=== PATIENT | female | born 1960 | race Caucasian/White ===

== ENCOUNTER 2022-10-24 20:35 | Emergency (ER) | payer BC, SELFPAY ==
--- NOTE | 2022-10-24 20:49 | ED.GENADULT ---
HPI - General Adult General Chief complaint: Recheck/Abnormal Lab/Rx Stated complaint: abnormal labs Time Seen by Provider: 10/25/22 00:56 Related Data Allergies Allergy/AdvReac Type Severity Reaction Status Date / Time No Known Allergies Allergy Verified 10/24/22 20:50 [facility] Social History Social History Advance Directives: No Advance Directives Information Provided: No Physical Exam ED Vital Signs: Vital Signs - 24 hr 10/24/22 20:51 Temperature 97 F Pulse Rate 70 Respiratory Rate 18 Blood Pressure 154/93 H Pulse Oximetry 98 Oxygen Delivery Method Room Air BMI result Body Mass Index 24.6 Course Course Course Narrative: This is a rapid medical exam: Additional HPI, ROS, PE not included below will be deferred to primary provider. Patient is a 62-year-old female referred to the ED by new PCP. She had routine labs drawn at 7am today for annual physical and she received a call this evening notifying her that her potassium was elevated to 6.3 and to come to the ED. Denies any chest pain, shortness of breath, or palpitations. Plan: labs, EKG Reevaluation(s) Reevaluation #1: i went to see patient she was not in room - reviewed workup and it was negative she is not on potassium sparing diuretic. aware of her K which is 4.6. I did not see the patient she is elopement Medical Decision Making Lab Data 10/24/22 21:00 10/24/22 21:00 Labs: Lab Results 10/24/22 10/24/22 Range/Units 21:00 21:00 WBC 4.5 L (4.8-10.8) X10*3/uL RBC 4.81 (4.20-5.50) X10*6/uL Hgb 14.8 (12.0-16.0) g/dl Hct 43.0 (37.0-47.0) % MCV 89.4 (80.0-98.0) fL MCH 30.8 (27.0-33.0) pg MCHC 34.4 (31.0-35.0) g/dl RDW 12.6 (11.0-16.0) % Plt Count 292 (160-400) X10*3/uL MPV 9.5 (9.4-12.3) fL Immature Gran % (Auto) 0.2 (0.0-0.4) % Neut % (Auto) 48.4 (45-73) % Lymph % (Auto) 37.2 (20-40) % Churchill % (Auto) 10.7 (2-11) % Eos % (Auto) 2.2 (0-4) % Baso % (Auto) 1.3 (0-2) % Lymph # (Auto) 1.7 (1.2-4.9) X10*3/uL Churchill # (Auto) 0.5 (0.1-1.2) X10*3/uL Eos # (Auto) 0.1 (0.0-0.4) X10*3/uL Baso # (Auto) 0.1 (0.0-0.2) X10*3/uL Abs Immat Gran (auto) 0.01 (0.00-0.03) X10*3/uL Absolute Neuts (auto) 2.2 (2.0-8.3) x10*3/uL Absolute Nucleated RBC 0.000 (0.0-0.012) X10*3/uL Nucleated RBC % (auto) 0.0 (0.0-0.2) /100WBC Sodium 140 (135-145) mmol/L Potassium 4.6 (3.3-5.1) mmol/L Chloride 105 (96-108) mmol/L Carbon Dioxide 27 (22-29) mmol/L Anion Gap 13 (12-20) BUN 10 (9-16) mg/dL Creatinine 0.82 (0.5-1.4) mg/dL Estim Creat Clear Calc 59.4 Estimated GFR > 60 Random Glucose 104 (60-115) mg/dL Calcium 9.7 (8.4-10.2) mg/dL Total Bilirubin 0.4 (0.0-1.0) mg/dL AST 23 (5-31) U/L ALT 16 (0-31) U/L Alkaline Phosphatase 74 (39-117) U/L Total Protein 7.4 (6.5-8.0) g/dL Albumin 4.1 (3.5-5.0) g/dL Discharge Plan Discharge Clinical Impression: Normal exam, Abnormal laboratory test result Patient Disposition: Elopement Interventions: ED Discharge Assessment Last Done: 10/25/22 01:03 Discharge Date/Time: 10/25/22 01:30
[2022-10-24 20:51] VITALS: BP 154/93; PULSE 70; RESP 18; TEMP 36.1; O2SAT 98; BMI 24.6
--- NOTE | 2022-10-24 20:52 | ECG_ITS ---
Test Reason : ABNORMAL LABS Blood Pressure : / mmHG Vent. Rate : 067 BPM Atrial Rate : 067 BPM P-R Int : 158 ms QRS Dur : 082 ms QT Int : 380 ms P-R-T Axes : 050 -36 025 degrees QTc Int : 401 ms Normal sinus rhythm Left axis deviation Low voltage QRS Cannot rule out Anterior infarct , age undetermined Abnormal ECG No previous ECGs available Referred By: Janeth Kessler Electronically Signed By:CUATE NAJERA
[2022-10-24 21:04] LABS: MANUAL DIFF FLAG NO
[2022-10-24 21:06] LABS: Basophils Absolute Auto 0.1 X10*3/uL (0.0-0.2); Basophils Percent Auto 1.3 % (0-2); Eosinophils Absolute Auto 0.1 X10*3/uL (0.0-0.4); Eosinophils Percent Auto 2.2 % (0-4); Hemoglobin 14.8 g/dl (12.0-16.0); Imm Gran Abs Auto 0.01 X10*3/uL (0.00-0.03); Imm Gran Pct Auto 0.2 % (0.0-0.4); Lymphocytes Absolute Auto 1.7 X10*3/uL (1.2-4.9); Lymphocytes Percent Auto 37.2 % (20-40); Mean Corpuscular HGB Conc 34.4 g/dl (31.0-35.0); Mean Corpuscular Hemoglobin 30.8 pg (27.0-33.0); Mean Corpuscular Volume 89.4 fL (80.0-98.0); Mean Platelet Volume 9.5 fL (9.4-12.3); Monocytes Absolute Auto 0.5 X10*3/uL (0.1-1.2); Monocytes Percent Auto 10.7 % (2-11); Neutrophils Absolute Auto 2.2 x10*3/uL (2.0-8.3); Neutrophils Percent Auto 48.4 % (45-73); Platelet Count 292 X10*3/uL (160-400); Red Blood Count 4.81 X10*6/uL (4.20-5.50); Red Cell Distribution Width 12.6 % (11.0-16.0); White Blood Count 4.5 X10*3/uL (4.8-10.8)
--- NOTE | 2022-10-24 21:18 | MHC.EDTECH ---
pt ekg taken and was read by provider ,blood drawn and sent to lab .
[2022-10-24 21:20] LABS: Alanine Aminotransferase 16 U/L (0-31); Albumin Level 4.1 g/dL (3.5-5.0); Alkaline Phosphatase 74 U/L (39-117); Anion Gap 13 (12-20); Aspartate Amino Transferase 23 U/L (5-31); Bilirubin Total 0.4 mg/dL (0.0-1.0); Blood Urea Nitrogen 10 mg/dL (9-16); Calcium 9.7 mg/dL (8.4-10.2); Carbon Dioxide 27 mmol/L (22-29); Chloride 105 mmol/L (96-108); Creatinine Clr Calc Pharmacy 59.4; Estimated Glomerular Filt Rate > 60; Glucose Random 104 mg/dL (60-115); Potassium 4.6 mmol/L (3.3-5.1); Sodium 140 mmol/L (135-145); Total Protein 7.4 g/dL (6.5-8.0)
== END 2022-10-25 01:30 | disposition left against medical advice (07) ==
LOC: HO.ED 10-25 01:12
PROVIDERS: Registered Nurse Emergency; Emergency Provider Emergency Medicine; PCP Family Medicine
DX: Z03.89 Encounter for observation for other suspected diseases and conditions ruled out (principal); R79.89 Other specified abnormal findings of blood chemistry
CPT/HCPCS: 36415; 80053; 85025; 93005; 99283

== ENCOUNTER 2025-01-04 07:59 | Inpatient (IN) | payer OTHER, SELFPAY ==
[2025-01-04] VITALS (12 sets, daily range): BP systolic 112–212; BP diastolic 73–125; PULSE 67–93; RESP 14–19; TEMP 36.3–36.9; O2SAT 93–100; BMI 26.1; BMI 27.0
--- NOTE | ~2025-01-04 | MR_ITS ---
CLINICAL HISTORY: TIA MR Brain without gadolinium Comparison: None provided Findings: No restricted diffusion. Faint tiny focus of T2 shine through in the right internal capsule. No intra-axial mass or hemorrhage. Scattered T2/FLAIR hyperintensities in the deep white matter, nonspecific, however may represent sequela of chronic microvascular ischemic disease. No midline shift. No hydrocephalus. Vascular flow voids are intact. Orbital contents are unremarkable. Minimal fluid in the bilateral mastoid air cells. No focal bone lesion. IMPRESSION: No acute intracranial abnormality. This document has been electronically signed by: Sridevi Gutierres MD on 01/04/2025 18:33:14
--- NOTE | ~2025-01-04 | CT_ITS ---
EXAMINATION: CT HEAD WITHOUT CONTRAST (STROKE PROTOCOL) CLINICAL INFORMATION: Stroke protocol. Left-sided weakness COMPARISON: None available. TECHNIQUE: Contiguous axial imaging was performed from the skull base to vertex without intravenous administration of contrast. This CT examination was performed using dose optimization techniques as appropriate, variously including the following: *Automated exposure control *Adjustment of mA and/or kV according to patient size (this includes techniques or standardized protocols for targeted exams where dose is matched to indication/reason for exam; i.e. extremities or head) *Use of iterative reconstruction technique DLP: 633 mGy-cm FINDINGS: No acute intracranial hemorrhage, mass effect, midline shift, hydrocephalus or herniation. Anderson-white matter differentiation is normal. No increased density in the MCA. Posterior cranial fossa contents demonstrated no acute hemorrhage or mass effect. Craniocervical junction is intact with normal position of the cerebellar tonsils. Sellar/suprasellar region demonstrated no gross masses. Probable old traumatic deformities in the nasal bones. No air-fluid levels in the paranasal sinuses. Tympanic cavities and mastoid cells are aerated. CT/CT angio head neck STROKE IMPRESSION: No acute intracranial hemorrhage or acute brain abnormality by CT. EXAMINATION: CTA NECK WITH CONTRAST (STROKE) CTA BRAIN WITH CONTRAST (STROKE) CLINICAL INFORMATION: Left-sided weakness. Concerning for acute stroke. COMPARISON: None available. TECHNIQUE: CTA of the head and neck was performed in the axial plane from the mediastinum to the skull vertex using 70 mL Omnipaque 350 intravenous contrast. Additional reformatted multiplanar images including maximum intensity projection MIP images are generated on the CT workstation. This CT examination was performed using dose optimization techniques as appropriate, variously including the following: *Automated exposure control *Adjustment of mA and/or kV according to patient size (this includes techniques or standardized protocols for targeted exams where dose is matched to indication/reason for exam; i.e. extremities or head) *Use of iterative reconstruction technique DLP: 666 mGy-cm FINDINGS: The degree of stenosis determined by criteria similar to NASCET. Chest CTA: No aneurysm or dissection in the included aortic arch. The main right branches are patent. Neck CTA: Right CCA: Normal patency. No focal stenosis. No intimal flap. Right ICA: Mixed plaques. Normal patency. No focal stenosis. No intimal flap. Left CCA: Normal patency. No focal stenosis. No intimal flap. Left ICA: Mixed plaque. Normal patency. No focal stenosis. No intimal flap. Tortuosity. V1/V2 segments: Normal patency. No focal stenosis. No intimal flap. Left vertebral artery slightly dominant. Both orientating from the subclavian arteries. Brain CTA: Anterior cerebral circulation: ICAs: Normal patency. No focal stenosis. No abrupt cut off. No gross calcified plaque. No vascular irregularity at the ICA terminus. MCA's: Normal patency. No focal stenosis. No abrupt cut off. Bifurcation/trifurcation demonstrated no gross irregularity. ACAs: Normal patency. No focal stenosis. No abrupt cut off. Ophthalmic arteries are patent without gross irregularity. Anterior communicating artery is not identified. Right posterior communicating artery is patent. Posterior cerebral circulation: V3/V4 segments: Normal patency. No intimal flap. Basilar artery is patent without focal stenosis or intimal flap. Left PICA is normal. Right PICA has a common trunk with the right anterior inferior cerebellar artery. Left anterior inferior cerebellar artery is patent. Superior cerebellar arteries are patent. pick up man: Normal patency. No focal stenosis. No abrupt cut off. Ancillary findings: No main cerebral venous sinus thrombosis. Multilevel cervical spondylosis resulting in kyphotic deformity apex at C3-4. Nonspecific, bilateral prominent cervical lymph nodes. Thyroid gland is not enlarged. Pulmonary mosaic pattern. Status post anterior cervical fusion and intervertebral body disc spacer placement C4 C6. IMPRESSION: No main cerebral artery occlusion or embolus. Calcified plaques in both ICA without high degree stenosis. No dissection. This critical result was discussed with the emergency physician Dr. Reno Tristan at 8:20 AM hours on January 04, 2025. It was ascertained that the content and urgency of the report was understood at the time of direct communication. Electronically signed by: Gatito Amaya MD 01/04/2025 08:37 AM [facility] [place]
--- NOTE | ~2025-01-04 | CT_ITS ---
EXAMINATION: CT HEAD WITHOUT CONTRAST (STROKE PROTOCOL) CLINICAL INFORMATION: Stroke protocol. Left-sided weakness COMPARISON: None available. TECHNIQUE: Contiguous axial imaging was performed from the skull base to vertex without intravenous administration of contrast. This CT examination was performed using dose optimization techniques as appropriate, variously including the following: *Automated exposure control *Adjustment of mA and/or kV according to patient size (this includes techniques or standardized protocols for targeted exams where dose is matched to indication/reason for exam; i.e. extremities or head) *Use of iterative reconstruction technique DLP: 633 mGy-cm FINDINGS: No acute intracranial hemorrhage, mass effect, midline shift, hydrocephalus or herniation. Anderson-white matter differentiation is normal. No increased density in the MCA. Posterior cranial fossa contents demonstrated no acute hemorrhage or mass effect. Craniocervical junction is intact with normal position of the cerebellar tonsils. Sellar/suprasellar region demonstrated no gross masses. Probable old traumatic deformities in the nasal bones. No air-fluid levels in the paranasal sinuses. Tympanic cavities and mastoid cells are aerated. CT/CT head for STROKE IMPRESSION: No acute intracranial hemorrhage or acute brain abnormality by CT. EXAMINATION: CTA NECK WITH CONTRAST (STROKE) CTA BRAIN WITH CONTRAST (STROKE) CLINICAL INFORMATION: Left-sided weakness. Concerning for acute stroke. COMPARISON: None available. TECHNIQUE: CTA of the head and neck was performed in the axial plane from the mediastinum to the skull vertex using 70 mL Omnipaque 350 intravenous contrast. Additional reformatted multiplanar images including maximum intensity projection MIP images are generated on the CT workstation. This CT examination was performed using dose optimization techniques as appropriate, variously including the following: *Automated exposure control *Adjustment of mA and/or kV according to patient size (this includes techniques or standardized protocols for targeted exams where dose is matched to indication/reason for exam; i.e. extremities or head) *Use of iterative reconstruction technique DLP: 666 mGy-cm FINDINGS: The degree of stenosis determined by criteria similar to NASCET. Chest CTA: No aneurysm or dissection in the included aortic arch. The main right branches are patent. Neck CTA: Right CCA: Normal patency. No focal stenosis. No intimal flap. Right ICA: Mixed plaques. Normal patency. No focal stenosis. No intimal flap. Left CCA: Normal patency. No focal stenosis. No intimal flap. Left ICA: Mixed plaque. Normal patency. No focal stenosis. No intimal flap. Tortuosity. V1/V2 segments: Normal patency. No focal stenosis. No intimal flap. Left vertebral artery slightly dominant. Both orientating from the subclavian arteries. Brain CTA: Anterior cerebral circulation: ICAs: Normal patency. No focal stenosis. No abrupt cut off. No gross calcified plaque. No vascular irregularity at the ICA terminus. MCA's: Normal patency. No focal stenosis. No abrupt cut off. Bifurcation/trifurcation demonstrated no gross irregularity. ACAs: Normal patency. No focal stenosis. No abrupt cut off. Ophthalmic arteries are patent without gross irregularity. Anterior communicating artery is not identified. Right posterior communicating artery is patent. Posterior cerebral circulation: V3/V4 segments: Normal patency. No intimal flap. Basilar artery is patent without focal stenosis or intimal flap. Left PICA is normal. Right PICA has a common trunk with the right anterior inferior cerebellar artery. Left anterior inferior cerebellar artery is patent. Superior cerebellar arteries are patent. supervisor photostat: Normal patency. No focal stenosis. No abrupt cut off. Ancillary findings: No main cerebral venous sinus thrombosis. Multilevel cervical spondylosis resulting in kyphotic deformity apex at C3-4. Nonspecific, bilateral prominent cervical lymph nodes. Thyroid gland is not enlarged. Pulmonary mosaic pattern. Status post anterior cervical fusion and intervertebral body disc spacer placement C4 C6. IMPRESSION: No main cerebral artery occlusion or embolus. Calcified plaques in both ICA without high degree stenosis. No dissection. This critical result was discussed with the emergency physician Dr. Reno Tristan at 8:20 AM hours on January 04, 2025. It was ascertained that the content and urgency of the report was understood at the time of direct communication. Electronically signed by: Gatito Amaya MD 01/04/2025 08:37 AM [facility] [place]
--- NOTE | 2025-01-04 08:09 | ECG_ITS ---
Test Reason : stroke alert Blood Pressure : */* mmHG Vent. Rate : 81 BPM Atrial Rate : 81 BPM P-R Int : 162 ms QRS Dur : 88 ms QT Int : 388 ms P-R-T Axes : 44 -40 20 degrees QTcB Int : 450 ms Normal sinus rhythm Possible Left atrial enlargement Left axis deviation Nonspecific ST and T wave abnormality Abnormal ECG When compared with ECG of 24-Oct-2022 21:06, No significant change was found Referred By: Reno Tristan Electronically Signed By: Marlo Vasquez
[2025-01-04 08:12] LABS: Glucose, Whole Blood 85 mg/dL (60-115)
[2025-01-04 08:13] LABS: MANUAL DIFF FLAG NO
--- NOTE | 2025-01-04 08:13 | ED_ITS ---
HPI - Neuro Symptoms/Deficit General Chief Complaint: Stroke Stated Complaint: ? stroke Time Seen by Provider: 01/04/25 08:07 Source: patient Mode of arrival: wheelchair Limitations: no limitations History of Present Illness ED Provider: HPI Narrative: 64-year-old female, reports being healthy however also does not see physicians on regular basis, went to bed at 22:00 was doing well, woke up at around 07:30 in the morning kneel down to pray and states was able to get up and then she went to get coffee and realize that her left leg is weak and left arm is weak and her left facial weakness as well, there were no visual changes, and it sounds like had some difficulty with phonation. Symptoms lasted approximately 30 minutes by the time she presented to the emergency department and I evaluated her she was completly at her baseline. Related Data Allergies Allergy/AdvReac Type Severity Reaction Status Date / Time No Known Allergies Allergy Verified 01/04/25 08:10 Review of Systems 2 Constitutional: Constitutional: Reports as per [facility] Social History Social History Smoked in Last 30 Days: No Use of substances other than those prescribed or required for medical reasons: No Patient : No Physical Exam 2 Exam: Exam: General: ?Appears of stated age ? ?PERRLA, ? Neck: Supple, no LAD ? ?CV: RRR, no obvious murmurs appreciated ? ?Resp: ?No wheezing rales rhonchi no stridor moving air well ? Abd: ?Bowel sounds are present, no tenderness no rebound no rigidity ? ?MSK: FROM, strength 5/5 all extremities ? Skin: Warm, dry, intact, ? ?Neuro: ?Alert and oriented x3, moving upper and lower extremities symmetrically, no obvious facial asymmetry noted, cranial nerves 2-12 intact, no dysmetria upper or lower extremities, no visual field changes, Vital Signs: Vital Signs: Last Vital Signs Temp 97.9 F 01/04/25 08:44 Pulse 84 01/04/25 09:13 Resp 15 01/04/25 09:13 BP 151/97 H 01/04/25 09:13 Pulse Ox 97 01/04/25 09:13 O2 Del Method Room Air 01/04/25 09:13 BMI result Body Mass Index 26.1 Medications Administered Discontinued Medications Generic Name Dose Route Start Last Admin Trade Name Freq PRN Reason Stop Dose Admin Iohexol 100 ml 01/04/25 08:31 01/04/25 08:31 Iohexol 350 Mg/Ml 100 Ml Infus..Btl IV 01/04/25 08:32 70 ml ONCE ONE Administration Medical Decision Making Medical Decision Making [facility] Narrative: 8:19 AM 01/04/2025 (Dr. 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 She would be a candidate for thrombectomy and so CT and CT angio we will be obtained, unless there are any findings do not anticipate discussing with Neurology as she is not a TNK candidate, also on initial presentation patient's blood pressure was quite elevated at the same time this maybe due to a very stressful event of come into the ER etc. I will address blood pressure as needed See my differential diagnosis as below Differential Diagnosis Differential Diagnoses: The differential diagnosis associated with the presentation includes (Ischemic stroke, hemorrhagic stroke, hypotensive emergency, TIA) Admission/Observation Consideration of admission/observation: Escalation of care including admission/observation considered Consult Healthcare Provider Management of the patient was discussed with: Hospitalist Lab Data [facility] Lab Attestation statement: I reviewed the patient's lab results. 01/04/25 08:03 01/04/25 08:08 Labs: Lab Results 01/04/25 01/04/25 Range/Units 08:03 08:08 WBC 3.9 L (4.8-10.8) X10*3/uL RBC 5.44 (4.20-5.50) X10*6/uL Hgb 16.0 (12.0-16.0) g/dl Hct 47.9 H (37.0-47.0) % MCV 88.1 (80.0-98.0) fL MCH 29.4 (27.0-33.0) pg MCHC 33.4 (31.0-35.0) g/dl RDW 12.9 (11.0-16.0) % Plt Count 247 (160-400) X10*3/uL MPV 9.2 L (9.4-12.3) fL Immature Gran % (Auto) 0.3 (0.0-0.4) % Neut % (Auto) 43.5 L (45-73) % Lymph % (Auto) 41.1 H (20-40) % [place] % (Auto) 11.5 H (2-11) % Eos % (Auto) 3.1 (0-4) % Baso % (Auto) 0.5 (0-2) % Lymph # (Auto) 1.6 (1.2-4.9) X10*3/uL [place] # (Auto) 0.5 (0.1-1.2) X10*3/uL Eos # (Auto) 0.1 (0.0-0.4) X10*3/uL Baso # (Auto) 0.0 (0.0-0.2) X10*3/uL Abs Immat Gran (auto) 0.01 (0.00-0.03) X10*3/uL Absolute Neuts (auto) 1.7 L (2.0-8.3) x10*3/uL Absolute Nucleated RBC 0.000 (0.0-0.012) X10*3/uL Nucleated RBC % (auto) 0.0 (0.0-0.2) /100WBC Hold Purple Top SEE NOTE PT 10.9 L (11.2-13.5) SEC Whole Blood PT 11.9 (11.1-13.5) sec INR 0.9 (0.9-1.1) Whole Blood INR 1.0 (0.9-1.1) APTT 32.9 (26.7-34.1) SEC POC Glucose 85 (60-115) mg/dL Troponin I High Sens < 2.7 (<3.5-17.0) ng/L Independent Interpretation I performed an independent interpretation of an: EKG (81 beats per minute otherwise normal ECG without dysrhythmia, AV adriana blocks or ST-T changes to suspect underlying ACS, my independent interpretation) Radiology Impression Discussion of test interpretation with radiology: I have reviewed the radiologist's reading. (No main cerebral artery occlusion or embolus. Calcified plaques in both ICA without high degree stenosis. No dissection.) NIH Stroke Scale Internal: Initial- Upon Arrival Level of Consciousness: Alert Level of Consciousness Questions: Answers both questions correctly Level of Consciousness Commands: Performs both tasks correctly Best Gaze: Normal Visual: No visual loss Facial Palsy: Normal Motor Arm (Right): No drift Motor Arm (Left): No drift Motor Leg (Right): No drift Motor Leg (Left): No drift Limb Ataxia: Absent Sensory: Normal Best Language: No aphasia Dysarthia: Normal Extinction and Inattention: No abnormality Score: 0 Critical Care Time Critical Care Time Total Critical Care Time: 35 Attestation: Time is exclusive of separately billable procedures. Time includes: direct patient care, patient reassessment, coordination of patient care, interpretation of data (laboratory data, pulse oximetry, arterial blood gases and chest xrays), review of patient's medical records, medical consultation and documentation of patient care. Procedures excluded from critical care time: central intravenous line placement and electrocardiography. Discharge Plan Discharge Clinical Impression: Brain TIA Referrals: Ida Franklin PA-C [Primary Care Provider, Internal Medicine] Print Language: Turkish
[2025-01-04 08:15] LABS: Hematocrit 47.9 % (37.0-47.0); Hemoglobin 16.0 g/dl (12.0-16.0); Imm Gran Abs Auto 0.01 X10*3/uL (0.00-0.03); Imm Gran Pct Auto 0.3 % (0.0-0.4); Lymphocytes Absolute Auto 1.6 X10*3/uL (1.2-4.9); Mean Corpuscular HGB Conc 33.4 g/dl (31.0-35.0); Mean Corpuscular Hemoglobin 29.4 pg (27.0-33.0); Mean Corpuscular Volume 88.1 fL (80.0-98.0); NRBC Abs Auto 0.000 X10*3/uL (0.0-0.012); NRBC Pct Auto 0.0 /100WBC (0.0-0.2); Platelet Count 247 X10*3/uL (160-400); Red Blood Count 5.44 X10*6/uL (4.20-5.50); White Blood Count 3.9 X10*3/uL (4.8-10.8)
[2025-01-04 08:22] LABS: Prothrombin Time Whole Bld POC 11.9 sec (11.1-13.5); ~PT, ~INR - Anti Coag Clinic 1.0 (0.9-1.1)
--- NOTE | 2025-01-04 08:26 | PC.NURSE ---
Pt presented in through ED triage, stroke alert. Woke up this morning around 0730A, felt left sided weakness and unwell when she went to pray. Went to bed around 1030PM, felt well at that time. Had word finding issues this morning and dry mouth. This episode lasted around 40 mins and resolved. BP noted to be hypertensive. Pt alert and oriented at this time, breathing even and unlabored, skin warm and dry. No slurred speech, facial droop or confusion at this time. Reports she has not seen a doctor in a long time, no home meds, no blood thinners. Orders followed
[2025-01-04 08:27] LABS: INTERNATIONAL NORM RATIO 0.9 (0.9-1.1); Prothrombin Time 10.9 SEC (11.2-13.5)
[2025-01-04 08:30] LABS: Partial Thromboplastin Time 32.9 SEC (26.7-34.1)
[2025-01-04] MEDS: iohexoL 350 MG/ML 100 ML INFUS..BTL IV (08:31)
--- NOTE | 2025-01-04 08:31 | PC.NURSE ---
Pt also reporting feeling fatigue and unwell X2 days. No fevers, no cough, no pain.
[2025-01-04 08:33] LABS: Stroke Lab Use COMPLETE
[2025-01-04 09:18] LABS: Anion Gap 15 (12-20); Blood Urea Nitrogen 17 mg/dL (9-16); Calcium 9.2 mg/dL (8.4-10.2); Carbon Dioxide 23 mmol/L (22-29); Chloride 108 mmol/L (96-108); Cholesterol 286 mg/dL (<200); Creatinine Clr Calc Pharmacy 61.5; Estimated Glomerular Filt Rate > 60; HDL Cholesterol 84 mg/dL (>40); Potassium 4.2 mmol/L (3.3-5.1); Sodium 142 mmol/L (135-145); Triglycerides 106 mg/dL (<150); Troponin-I High Sensitivity < 2.7 ng/L (<3.5-17.0)
--- NOTE | 2025-01-04 10:23 | MHC.EDTECH ---
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
--- NOTE | 2025-01-04 10:31 | PM.IMHP ---
History of Present Illness Date of Service: 01/04/25 Attending physician on admission: Azar Meade Chief Complaint: Left sided weakness 64-year-old female who presented to the hospital for left-sided weakness and dysarthria that began approximately at 730 in the morning, with last known normal at approximately 22:00 on 01/03. Patient states that she was praying and was unable to get up, went to her room, afternoon improvement presented to the ED. In the ED NIH stroke scale 0, BP on admission 212/104 mmHg, on labs WBC 3.9, cholesterol 286, LDL 181, triglycerides 106 CT and CTA angio of head and neck with no signs of hemorrhage or ischemia, with calcified plaques in both ICA without high-degree stenosis, no dissection. Patient refers she has occasional episodes of palpitations, was diagnosed with a heart murmur when younger. Patient states that she does not take any medications at home as she is fairly healthy, diet consists mostly of meats and unprocessed foods. Denies any episodes similar to this 1. Per family members at bedside, father with history of stroke and [place]. Review of Systems Review of Systems: 14 point review of systems obtained, negative except as stated above PMFSH Social History Smoked in Last 30 Days: No Use of substances other than those prescribed or required for medical reasons: No Advance Directives: No Advance Directives Information Provided: Yes Patient : No Meds Allergies Allergy/AdvReac Type Severity Reaction Status Date / Time No Known Allergies Allergy Verified 01/04/25 08:10 Active Medications: Current Medications Acetaminophen (Acetaminophen 325 Mg Tablet) 650 mg PO Q6H PRN PRN Reason: Pain, Mild 1-3,fever,headache Aspirin (Aspirin Enteric Coated 81 Mg Tablet.Dr) 81 mg PO DAILY [facility] Atorvastatin Calcium (Atorvastatin Calcium 80 Mg Tablet) 80 mg PO DAILY [facility] Last Admin: 01/04/25 10:13 Dose: 80 mg Calcium Carbonate (Calcium Carbonate 750 Mg Tab.Chew) 750 mg PO Q4H PRN PRN Reason: Heartburn Clopidogrel Bisulfate (Clopidogrel Bisulfate 75 Mg Tablet) 75 mg PO DAILY [facility] Labetalol HCl (Labetalol Hcl 100 Mg/20 Ml Vial) 20 mg IVPUSH Q10M PRN PRN Reason: SBP > 160 Lisinopril (Lisinopril 10 Mg Tablet) 10 mg PO DAILY [facility]; Protocol Last Admin: 01/04/25 10:17 Dose: 10 mg Magnesium Hydroxide (Milk Of Magnesia 30 Ml Oral.Susp) 30 ml PO DAILY PRN PRN Reason: Constipation Melatonin (Melatonin 3 Mg Tablet) 6 mg PO BEDTIME PRN PRN Reason: Insomnia Sodium Chloride (0.9 % Sodium Chloride Flush 3 Ml Syringe) 3 ml IVFLUSH QSHIFT NATALIE Physical Exam Vital Signs and Narrative: Vital Signs: Last Vital Signs Temp 97.9 F 01/04/25 08:44 Pulse 77 01/04/25 10:12 Resp 18 01/04/25 10:12 BP 193/125 H 01/04/25 10:17 Pulse Ox 98 01/04/25 10:12 O2 Del Method Room Air 01/04/25 10:12 BMI result Body Mass Index 26.1 General: AxOx3, No acute distress Head: AT/NC ENT: Moist mucous membranes Neck: supple CVS; RRR, S1 S2 normal Lungs: Clear bilateral breath sounds, no wheezes or crackles Abd: Soft non tender, non distended Ext: No edema and no calf tenderness MSK: moving all 4 limbs Skin: No cyanosis or edema Psych: Cooperative with exam Neurology: no focal deficit Results Labs 01/04/25 08:03 01/04/25 08:08 Labs: Laboratory Results - last 24 hr 01/04/25 01/04/25 08:03 08:08 MCV 88.1 MCH 29.4 MCHC 33.4 RDW 12.9 Plt Count 247 MPV 9.2 L Immature Gran % (Auto) 0.3 Neut % (Auto) 43.5 L Lymph % (Auto) 41.1 H Lee % (Auto) 11.5 H Eos % (Auto) 3.1 Baso % (Auto) 0.5 Lymph # (Auto) 1.6 Lee # (Auto) 0.5 Eos # (Auto) 0.1 Baso # (Auto) 0.0 Abs Immat Gran (auto) 0.01 Absolute Neuts (auto) 1.7 L Absolute Nucleated RBC 0.000 Nucleated RBC % (auto) 0.0 Hold Purple Top SEE NOTE PT 10.9 L Whole Blood PT 11.9 INR 0.9 Whole Blood INR 1.0 APTT 32.9 Anion Gap 15 Estim Creat Clear Calc 61.5 Estimated GFR > 60 POC Glucose 85 Random Glucose 96 Calcium 9.2 Troponin I High Sens < 2.7 Triglycerides 106 Cholesterol 286 H LDL Cholesterol, Calc 181 H HDL Cholesterol 84 Imaging Radiologist's Impressions: Impressions Head/Neck CTA 01/04/25 08:01 IMPRESSION: No acute intracranial hemorrhage or acute brain abnormality by CT. EXAMINATION: CTA NECK WITH CONTRAST (STROKE) CTA BRAIN WITH CONTRAST (STROKE) CLINICAL INFORMATION: Left-sided weakness. Concerning for acute stroke. COMPARISON: None available. TECHNIQUE: CTA of the head and neck was performed in the axial plane from the mediastinum to the skull vertex using 70 mL Omnipaque 350 intravenous contrast. Additional reformatted multiplanar images including maximum intensity projection MIP images are generated on the CT workstation. This CT examination was performed using dose optimization techniques as appropriate, variously including the following: *Automated exposure control *Adjustment of mA and/or kV according to patient size (this includes techniques or standardized protocols for targeted exams where dose is matched to indication/reason for exam; i.e. extremities or head) *Use of iterative reconstruction technique DLP: 666 mGy-cm FINDINGS: The degree of stenosis determined by criteria similar to NASCET. Chest CTA: No aneurysm or dissection in the included aortic arch. The main right branches are patent. Neck CTA: Right CCA: Normal patency. No focal stenosis. No intimal flap. Right ICA: Mixed plaques. Normal patency. No focal stenosis. No intimal flap. Left CCA: Normal patency. No focal stenosis. No intimal flap. Left ICA: Mixed plaque. Normal patency. No focal stenosis. No intimal flap. Tortuosity. V1/V2 segments: Normal patency. No focal stenosis. No intimal flap. Left vertebral artery slightly dominant. Both orientating from the subclavian arteries. Brain CTA: Anterior cerebral circulation: ICAs: Normal patency. No focal stenosis. No abrupt cut off. No gross calcified plaque. No vascular irregularity at the ICA terminus. MCA's: Normal patency. No focal stenosis. No abrupt cut off. Bifurcation/trifurcation demonstrated no gross irregularity. ACAs: Normal patency. No focal stenosis. No abrupt cut off. Ophthalmic arteries are patent without gross irregularity. Anterior communicating artery is not identified. Right posterior communicating artery is patent. Posterior cerebral circulation: V3/V4 segments: Normal patency. No intimal flap. Basilar artery is patent without focal stenosis or intimal flap. Left PICA is normal. Right PICA has a common trunk with the right anterior inferior cerebellar artery. Left anterior inferior cerebellar artery is patent. Superior cerebellar arteries are patent. applications programmer analyst: Normal patency. No focal stenosis. No abrupt cut off. Ancillary findings: No main cerebral venous sinus thrombosis. Multilevel cervical spondylosis resulting in kyphotic deformity apex at C3-4. Nonspecific, bilateral prominent cervical lymph nodes. Thyroid gland is not enlarged. Pulmonary mosaic pattern. Status post anterior cervical fusion and intervertebral body disc spacer placement C4 C6. IMPRESSION: No main cerebral artery occlusion or embolus. Calcified plaques in both ICA without high degree stenosis. No dissection. This critical result was discussed with the emergency physician Dr. Reno Tristan at 8:20 AM hours on January 04, 2025. It was ascertained that the content and urgency of the report was understood at the time of direct communication. Electronically signed by: Gatito Amaya MD 01/04/2025 08:37 AM [facility] [place] Head CT 01/04/25 08:11 IMPRESSION: No acute intracranial hemorrhage or acute brain abnormality by CT. EXAMINATION: CTA NECK WITH CONTRAST (STROKE) CTA BRAIN WITH CONTRAST (STROKE) CLINICAL INFORMATION: Left-sided weakness. Concerning for acute stroke. COMPARISON: None available. TECHNIQUE: CTA of the head and neck was performed in the axial plane from the mediastinum to the skull vertex using 70 mL Omnipaque 350 intravenous contrast. Additional reformatted multiplanar images including maximum intensity projection MIP images are generated on the CT workstation. This CT examination was performed using dose optimization techniques as appropriate, variously including the following: *Automated exposure control *Adjustment of mA and/or kV according to patient size (this includes techniques or standardized protocols for targeted exams where dose is matched to indication/reason for exam; i.e. extremities or head) *Use of iterative reconstruction technique DLP: 666 mGy-cm FINDINGS: The degree of stenosis determined by criteria similar to NASCET. Chest CTA: No aneurysm or dissection in the included aortic arch. The main right branches are patent. Neck CTA: Right CCA: Normal patency. No focal stenosis. No intimal flap. Right ICA: Mixed plaques. Normal patency. No focal stenosis. No intimal flap. Left CCA: Normal patency. No focal stenosis. No intimal flap. Left ICA: Mixed plaque. Normal patency. No focal stenosis. No intimal flap. Tortuosity. V1/V2 segments: Normal patency. No focal stenosis. No intimal flap. Left vertebral artery slightly dominant. Both orientating from the subclavian arteries. Brain CTA: Anterior cerebral circulation: ICAs: Normal patency. No focal stenosis. No abrupt cut off. No gross calcified plaque. No vascular irregularity at the ICA terminus. MCA's: Normal patency. No focal stenosis. No abrupt cut off. Bifurcation/trifurcation demonstrated no gross irregularity. ACAs: Normal patency. No focal stenosis. No abrupt cut off. Ophthalmic arteries are patent without gross irregularity. Anterior communicating artery is not identified. Right posterior communicating artery is patent. Posterior cerebral circulation: V3/V4 segments: Normal patency. No intimal flap. Basilar artery is patent without focal stenosis or intimal flap. Left PICA is normal. Right PICA has a common trunk with the right anterior inferior cerebellar artery. Left anterior inferior cerebellar artery is patent. Superior cerebellar arteries are patent. applications programmer analyst: Normal patency. No focal stenosis. No abrupt cut off. Ancillary findings: No main cerebral venous sinus thrombosis. Multilevel cervical spondylosis resulting in kyphotic deformity apex at C3-4. Nonspecific, bilateral prominent cervical lymph nodes. Thyroid gland is not enlarged. Pulmonary mosaic pattern. Status post anterior cervical fusion and intervertebral body disc spacer placement C4 C6. IMPRESSION: No main cerebral artery occlusion or embolus. Calcified plaques in both ICA without high degree stenosis. No dissection. This critical result was discussed with the emergency physician Dr. Reno Tristan at 8:20 AM hours on January 04, 2025. It was ascertained that the content and urgency of the report was understood at the time of direct communication. Electronically signed by: Gatito Amaya MD 01/04/2025 08:37 AM [facility] [place] Assessment and Plan (1) Brain TIA: Status: Acute (2) Hyperlipidemia: Status: Acute (3) Hypertensive crisis: Status: Acute Plan Assessment: 64-year-old female who presented to the ED on 01/04 with left-sided weakness and dysarthria, found to have elevated blood pressure, elevated LDL. With CT head and neck with no hemorrhage, with calcified plaques in both ICA without high-grade stenosis. TIA, could be secondary to hypertensive crisis, to rule out ABCD2 score: 5 points -imaging and labs reviewed -we will place on telemetry -we will give loading dose of aspirin and Plavix, continue DAPT for 21 days per point trial -we will initiate atorvastatin 80 mg q.d. -neurology consulted -TSH and A1c ordered -we will order TTE to rule out PFO -MRI ordered -neuro checks -P.T./OT consulted Hypertensive crisis -we will initiate lisinopril 10 mg, labetalol 20mg IV push p.r.n. to decrease MAP by 25% in first hour -monitor blood pressure, with emt intermediate goal BP less than 140 -monitor for any signs of worsening headache Leukopenia -monitor for any signs of fever, shortness of breath, follow-up as outpatient with PCP/hematology/oncology Hyperlipidemia -labs with LDL of 181 -we will initiate atorvastatin 80 mg q.d., we will likely require initiation of ezetimibe 10 mg -counseling given on importance of Mediterranean diet and doing at least 150 minutes of moderate intensity exercise per week, patient resonated understanding. FEN: NI, replete as needed, cardiac GI PPx: NI DVT PPx: SCDs Code Status: Full Code Disposition: All questions and concerns with the patient were answered to satisfaction. All pertinent clinical documents, images and labs were reviewed. 75 minutes was spent with patient care, admission, orders. DISCLAIMER: This document was created using voice recognition software. Any mistakes in the prescription are unintentional. An attempt was made to focus for accuracy, but to expedite availability, some errors may persist. Please contact with any need for correction or further clarification Total time managing care of this patient today: 75 minutes. Quality Stroke Does the patient have a stroke diagnosis?: No Reason for No Anti-thrombotic by Day Two: N/A - Med Ordered VTE Prior VTE?: No VTE Risk Level:: Medical - moderate - high VTE Device Contraindication: N/A - Device Ordered VTE Drug Contraindication: Treatment Not Indicated
--- NOTE | 2025-01-04 11:34 | P.CNNE_ITS ---
History of Present Illness Data of Consult Service Date: 01/04/25 Primary Care Provider: Ida Franklin PA-C HPI Reason for consult: Transient Left sided weakness and slurred speech This is a 64-year-old female who presented to the hospital with left-sided weakness and dysarthria that began approximately at 07:30 today, with last known normal at approximately 22:00 on 01/03. Patient states that she was praying and was unable to get up, went to her room then presented to the ED. The symptoms lasted about 30 minutes. In the ED, her NIH stroke scale 0, BP on admission 212/104 mmHg, on labs WBC 3.9, cholesterol 286, LDL 181, triglycerides 106 CT and CTA angio of head and neck with no signs of hemorrhage or ischemia, with calcified plaques in both ICA without high-degree stenosis, no dissection. Patient refers she has occasional episodes of palpitations, was diagnosed with a heart murmur when younger. In the past she has been treated for hypertension but went off medications 2 years ago and then monitored her blood pressure for about a year but has not checked since then. She came in with a very elevated blood pressure. She has never been treated for hypercholesterolemia either. Patient states that she does not take any medications at home as she is fairly healthy. Denies any episodes similar to this although she had left leg numbness that lasted for a few months about 2 years ago and then gradually cleared up. Father with history of stroke and [place]. [facility] Social History Social History Smoked in Last 30 Days: No Use of substances other than those prescribed or required for medical reasons: No Advance Directives: No Advance Directives Information Provided: Yes Patient : No Meds Allergies Allergy/AdvReac Type Severity Reaction Status Date / Time No Known Allergies Allergy Verified 01/04/25 08:10 Active Medications: Current Medications Acetaminophen (Acetaminophen 325 Mg Tablet) 650 mg PO Q6H PRN PRN Reason: Pain, Mild 1-3,fever,headache Aspirin (Aspirin Enteric Coated 81 Mg Tablet.) 81 mg PO DAILY [facility] Atorvastatin Calcium (Atorvastatin Calcium 80 Mg Tablet) 80 mg PO DAILY [facility] Last Admin: 01/04/25 10:13 Dose: 80 mg Calcium Carbonate (Calcium Carbonate 750 Mg Tab.Chew) 750 mg PO Q4H PRN PRN Reason: Heartburn Clopidogrel Bisulfate (Clopidogrel Bisulfate 75 Mg Tablet) 75 mg PO DAILY [facility] Labetalol HCl (Labetalol Hcl 100 Mg/20 Ml Vial) 20 mg IVPUSH Q10M PRN PRN Reason: SBP > 160 Lisinopril (Lisinopril 10 Mg Tablet) 10 mg PO DAILY [facility]; Protocol Last Admin: 01/04/25 10:17 Dose: 10 mg Magnesium Hydroxide (Milk Of Magnesia 30 Ml Oral.Susp) 30 ml PO DAILY PRN PRN Reason: Constipation Melatonin (Melatonin 3 Mg Tablet) 6 mg PO BEDTIME PRN PRN Reason: Insomnia Sodium Chloride (0.9 % Sodium Chloride Flush 3 Ml Syringe) 3 ml IVFLUSH QSHIFT [facility] Physical Exam 2 Vital Signs: Vital Signs: Last Vital Signs Temp 97.9 F 01/04/25 08:44 Pulse 70 01/04/25 11:27 Resp 15 01/04/25 11:27 BP 151/92 H 01/04/25 11:27 Pulse Ox 98 01/04/25 10:12 O2 Del Method Room Air 01/04/25 10:12 BMI result Body Mass Index 26.1 Neuro: Other: She is alert and oriented with normal intellectual functions. Cranial nerves 2- 12 are normal. Speech and language functions normal with no dysarthria. There is no drift of the upper extremities. Muscle tone and strength are normal in all 4 extremities deep tendon reflexes are 2+ and plantar responses are flexor. Sensory exam is normal. Results Labs 01/04/25 08:03 01/04/25 08:08 Labs: Short CBC 01/04/25 Range/Units 08:03 WBC 3.9 L (4.8-10.8) X10*3/uL Hgb 16.0 (12.0-16.0) g/dl Hct 47.9 H (37.0-47.0) % Plt Count 247 (160-400) X10*3/uL BMP 01/04/25 08:08 Sodium 142 Potassium 4.2 Chloride 108 Carbon Dioxide 23 BUN 17 H Creatinine 0.80 Calcium 9.2 Assessment and Plan (1) Brain TIA: Status: Acute She appears to have had a TIA or a small-vessel minor right thalamic microvascular infarct related to uncontrolled hypertension. Her CTA of the head and neck are unremarkable. Recommendations: MRI of the brain to see if there has been an infarct and to assess for microvascular disease. 2. Echocardiogram. 3. Control of blood pressure. Start aspirin 81 mg a day. Blood pressure control. Atorvastatin 80 mg a day for her hyperlipidemia. (2) Hypertensive crisis: Status: Acute Control of blood pressure and outpatient follow-up for hypertension and hypercholesterolemia with her PCP. Procedures Date of Service Date of Service: 01/04/25
[2025-01-04 11:44] LABS: Hemoglobin A1C 133.4485 umol/L; Total Hemoglobin (HGBA1C) 3985.0577 umol/L
[2025-01-04 11:51] LABS: Troponin-I High Sensitivity < 2.7 ng/L (<3.5-17.0)
--- NOTE | 2025-01-04 12:53 | PHA.MEDREC ---
Pharmacy Consult ? Medication Reconciliation Pharmacy has completed the medication reconciliation. On admission patient states no home meds, matches claims.
--- NOTE | 2025-01-04 13:00 | CA_ITS ---
Transthoracic Echocardiogram Patient (Last, First, Middle): Ariadna Lubin, Gender: Female Date of : 1960 Age: 64 Procedure Date: 01/04/2025 Procedure Type: Transthoracic Echocardiogram Location: [facility] [place] Height: 157.48 cm Weight: 61.24 kg BSA: 1.62 m2 Heart Rate: bpm BP: 154 / 102 mmHg Chair Post Machine Operator: Referring MD: Azar Meade MD Symptoms: TIA Study Quality: Good ECG Rhythm: Sinus Conclusions: - Normal left ventricular size and systolic function. There is mildly increased left ventricular wall thickness. The visually estimated ejection fraction is between 65-70%. - Evidence suggests grade I (mild) diastolic dysfunction. - Normal right ventricular cavity size and systolic function. - Contrast study for right to left shunting is moderately positive with Valsalva maneuver. Patent foramen ovale detected using by contrast. Findings Left Ventricle Normal left ventricular size and systolic function. There is mildly increased left ventricular wall thickness. The visually estimated ejection fraction is between 65-70%. There is no evidence of regional wall motion abnormalities. Abnormal diastolic function is noted. Spectral Doppler is indicative of an impaired relaxation filling pattern. E/E prime ratio is <8, consistent with normal filling pressures. Evidence suggests grade I (mild) diastolic dysfunction. Right Ventricle Normal right ventricular cavity size and systolic function. Atria The left atrium is normal in size. Contrast study for right to left shunting is moderately positive with Valsalva maneuver. Patent foramen ovale detected using by contrast. The right atrium is normal in size. Aortic Valve Normal aortic valve structure and function. There is no aortic valve stenosis. There is no aortic valve regurgitation. Mitral Valve The mitral valve appears normal. There is no mitral valve regurgitation. There is no mitral valve stenosis. Pulmonic Valve The pulmonic valve is normal. There is no pulmonic valve regurgitation. Tricuspid Valve Normal tricuspid valve structure. There is trace tricuspid valve regurgitation. Normal right atrial pressure. There is no evidence of pulmonary hypertension. Great Vessels All visible segments of the aorta are normal in size. Venous The inferior vena cava is normal in size and collapses greater than 50% with inspiration. Pericardium/Pleural There is no evidence of pericardial effusion. Prior Study Comparison No prior study available for comparison. Measurements 2D Linear Measurements IVSd: 1.05 0.6-0.9/0.6-1.0 cm LVIDd: 3.53 3.9-5.3/4.2-5.9 cm LVIDd Index: 2.18 2.4-3.2/2.2-3.1 cm/m2 LVIDs: 2.15 2.0-3.6 cm LVPWd: 1.02 0.7-1.1 cm Ao Root: 3.00 2.1-3.5 cm LA Diam: 2.70 2.7-3.8/3.0-4.0 cm LAIDs Index: 1.67 1.5-2.3 cm/m2 LV Mass: 136.89 67-162/88-224 g LV Mass Index: 84.50 43-95/49-115 g/m2 LVOT Diam: 2.10 3.0+(-)1.3 cm 2D Systolic Function EF 4C: 69.80 >55% EF 2C: 61.20 >55% EF BiP: 66.50 >55% Mitral Valve MV Pk E: 0.54 MV PK A: 0.89 MV Decel Time: 280.00 E/A: 0.60 E'Lateral: 9.68 E'Medial: 4.79 E/E' Med: 11.30 E/E' Lat: 5.60 PHT: 82.00 MVA PHT: 2.68 Decel [place]: 1.92 Aortic Valve AoV Pk Salvador: 1.22 AoV Mn Salvador: 0.81 AoV VTI: 0.26 AoV Pk Grad: 6.00 Aov Mn Grad: 3.00 DON Cont.VTI: 2.50 LVOT LVOT Pk [place]: 0.79 LVOT Mn Salvador: 0.47 LVOT VTI: 0.19 LVOT Pk Grad: 3.00 LVOT Mn Grad: 1.00 LVOT Diam: 2.10 LVOT Area: 3.46 Diastolic Function MV Pk E: 0.54 MV Pk A: 0.89 E/A: 0.60 E'Medial: 4.79 E/E' Med: 11.30 E' Laterial: 9.68 E/E' Lat: 5.60 Right Ventricle TAPSE (mm): 24.00 TVS' Salvador: 15.00 Tricuspid Valve TR Pk Salvador: 2.35 TR Pk Grad: 22.00 RA Press: 3.00 RVSP: 25.00 Great Vessels Aorta Ao Root-2D: 3.00 2.0-3.7 cm Ao Asc: 3.10 2.1-3.4 cm Pulmonary Valve PV Pk Salvador: 0.89 Peak PV Grad: 3.00 Updated in Other Vendor System with Status of Final Marlo Vasquez MD electronically signed on 01/07/2025 10:41:48 AM with status of Final
--- NOTE | 2025-01-04 13:52 | MHC.STROKE ---
08 - Called to ED for Stroke Alert. Pt in CT scan upon my arrival then moved to bed 12 Pt awake, alert and oriented x 4. Pt is pleasant and engaged in conversation. Pt reports that this morning, she had a period of left sided weakness and word finding issues. By the time the patient arrived to the ED, symptoms resolved. Symptoms lasted approximately 40 minutes. Upon further conversation with the patient, pt reports feeling more tired over the past 2 days. Stated that her body felt weird . Stroke/TIA Education discussed with patient. Pamphlet provided and reviewed. Pt's Medical history reviewed with her - she reports that she does not currently have a PCP. She states that she tapered off of her blood pressure medication about 1.5 years ago. She reports that she did that on her own. She does have a family hx of stroke/[place] (father). We discussed risk factors including blood pressure, high cholesterol. Pt reports that she is unsure of her numbers however she recently had an MRI to check her visceral fat. This was done by a doctor in [place] that is not her PCP. We discussed the importance of establishing a PCP to see regularly. Pt states that she eats well and exercises frequently. She reports doing a cold plunge every day. We discussed medications, diet, exercise. Pt does not smoke or drink. pt updated on plan of care. Agreeable to plan/admission. Will continue to assist as needed.
--- NOTE | 2025-01-04 15:46 | MHC.STROKE ---
Additional education provided in regards to TIA. We also reviewed in depth the medications that were started by the hospitalist. Pt concerned about not having PCP. I reached out to PCP group at [address] appointment made for patient 01/[address] Inman. Pt aware of appointment.
[2025-01-04] MEDS: 0.9 % Sodium Chloride Flush 3 ML SYRINGE IVFLUSH (16:37)
--- NOTE | 2025-01-04 17:01 | HO.NURTONUR ---
PER MD: This is a 64-year-old female who presented to the hospital with left-sided weakness and dysarthria that began approximately at 07:30 today, with last known normal at approximately 22:00 on 01/03. Patient states that she was praying and was unable to get up, went to her room then presented to the ED. The symptoms lasted about 30 minutes. In the ED, her NIH stroke scale 0, BP on admission 212/104 mmHg, on labs WBC 3.9, cholesterol 286, LDL 181, triglycerides 106 CT and CTA angio of head and neck with no signs of hemorrhage or ischemia, with calcified plaques in both ICA without high-degree stenosis, no dissection. Patient refers she has occasional episodes of palpitations, was diagnosed with a heart murmur when younger. In the past she has been treated for hypertension but went off medications 2 years ago and then monitored her blood pressure for about a year but has not checked since then. She came in with a very elevated blood pressure. She has never been treated for hypercholesterolemia either. Patient states that she does not take any medications at home as she is fairly healthy. Denies any episodes similar to this although she had left leg numbness that lasted for a few months about 2 years ago and then gradually cleared up. Father with history of stroke and OK. PER RN: Admit: TIA, uncontrolled HTN Alert and oriented, ambulatory independent, independent ADLs No neuro deficits Pills whole, passed swallow screen Cardiac diet IV: 20G in left AC Monitor: NSR BP trending to normotensive No pain Plan: MRI and HTN control
[2025-01-05 03:38] VITALS: BP 107/68; PULSE 54; RESP 19; TEMP 36.8; O2SAT 98
[2025-01-05 07:40] LABS: Anion Gap 12 (12-20); Blood Urea Nitrogen 22 mg/dL (9-16); Calcium 9.2 mg/dL (8.4-10.2); Carbon Dioxide 25 mmol/L (22-29); Chloride 108 mmol/L (96-108); Creatinine Clr Calc Pharmacy 63.3; Estimated Glomerular Filt Rate > 60; Magnesium 2.1 mg/dL (1.6-2.6); Potassium 3.9 mmol/L (3.3-5.1); Sodium 141 mmol/L (135-145)
[2025-01-05 08:00] VITALS: BP 105/68; PULSE 67; RESP 20; TEMP 36.4; O2SAT 97
[2025-01-05 08:38] LABS: Thyroid Stimulating Hormone 4.73 uIU/mL (0.32-4.0)
[2025-01-05] MEDS: Aspirin Enteric Coated 81 MG TABLET.DR PO (08:58)
[2025-01-05] MEDS: 0.9 % Sodium Chloride Flush 3 ML SYRINGE IVFLUSH (08:58)
--- NOTE | 2025-01-05 09:03 | MHC.CM.PN ---
CM met with Patient at bedside. Patient lives in a house with her Mother, Sister, and [id number] and she required no services nor DME ART PROFESSOR. PT recommends a home dc and CM has initiated and will follow for dc planning. PCP/PA is Ida Franklin and Patient will self arrange transport at dc.
[2025-01-05 10:01] VITALS: BP 105/68; PULSE 67
[2025-01-05 12:00] VITALS: BP 109/59; PULSE 63; RESP 20; TEMP 36.2; O2SAT 98
--- NOTE | 2025-01-05 13:18 | P.PNIM_ITS ---
Subjective Subjective Date of Service: 01/05/25 Interval History: Patient seen and examined at bedside this morning, MRI showing no signs of acute intracranial abnormalities with possible sequelae of chronic microvascular ischemic disease, awaiting TTE results. Blood pressure has improved. Patient denies any complaints at this time. States that she is feeling better. Review of Systems Review of Systems: Yes all other systems are reviewed and are negative Physical Exam 2 Exam: Exam: General: AxOx3, No acute distress Head: AT/NC ENT: Moist mucous membranes Neck: supple CVS; RRR, S1 S2 normal Lungs: Clear bilateral breath sounds, no wheezes or crackles Abd: Soft non tender, non distended Ext: No edema and no calf tenderness MSK: moving all 4 limbs Skin: No cyanosis or edema Psych: Cooperative with exam Neurology: no focal deficit Vital Signs: Vital Signs: Last Vital Signs Temp 97.1 F 01/05/25 12:00 Pulse 63 01/05/25 12:00 Resp 20 01/05/25 12:00 BP 109/59 L 01/05/25 12:00 Pulse Ox 98 01/05/25 12:00 O2 Del Method Room Air 01/05/25 12:00 BMI result Body Mass Index 27.0 Objective Data Active Medications Acetaminophen (Acetaminophen 325 Mg Tablet) 650 mg PO Q6H PRN PRN Reason: Pain, Mild 1-3,fever,headache Last Admin: 01/05/25 00:57 Dose: 650 mg Documented By: CHERYLE Aspirin (Aspirin Enteric Coated 81 Mg Tablet.) 81 mg PO DAILY [facility] Last Admin: 01/05/25 08:58 Dose: 81 mg Documented By: GAIL Atorvastatin Calcium (Atorvastatin Calcium 80 Mg Tablet) 80 mg PO DAILY [facility] Last Admin: 01/05/25 08:58 Dose: 80 mg Documented By: GAIL Calcium Carbonate (Calcium Carbonate 750 Mg Tab.Chew) 750 mg PO Q4H PRN PRN Reason: Heartburn Clopidogrel Bisulfate (Clopidogrel Bisulfate 75 Mg Tablet) 75 mg PO DAILY [facility] Last Admin: 01/05/25 08:58 Dose: 75 mg Documented By: GAIL Labetalol HCl (Labetalol Hcl 100 Mg/20 Ml Vial) 20 mg IVPUSH Q10M PRN PRN Reason: SBP > 160 Lisinopril (Lisinopril 10 Mg Tablet) 10 mg PO DAILY [facility]; Protocol Last Admin: 01/05/25 08:58 Dose: 10 mg Documented By: GAIL Magnesium Hydroxide (Milk Of Magnesia 30 Ml Oral.Susp) 30 ml PO DAILY PRN PRN Reason: Constipation Melatonin (Melatonin 3 Mg Tablet) 6 mg PO BEDTIME PRN PRN Reason: Insomnia Last Admin: 01/05/25 00:58 Dose: 6 mg Documented By: CHERYLE Sodium Chloride (0.9 % Sodium Chloride Flush 3 Ml Syringe) 3 ml IVFLUSH QSHIFT [facility] Last Admin: 01/05/25 08:58 Dose: 3 ml Documented By: GAIL Labs 01/04/25 08:03 01/05/25 06:37 Labs: Laboratory Results - last 24 hr 01/05/25 06:37 Anion Gap 12 Estim Creat Clear Calc 63.3 Estimated GFR > 60 Random Glucose 85 Calcium 9.2 Magnesium 2.1 TSH 4.73 H Assessment and Plan (1) Brain TIA: Status: Acute (2) Hyperlipidemia: Status: Acute Plan Assessment: 64-year-old female who presented to the ED on 01/04 with left-sided weakness and dysarthria, found to have elevated blood pressure, elevated LDL. With CT head and neck with no hemorrhage, with calcified plaques in both ICA without high-grade stenosis. MRI negative for stroke, with chronic ischemic changes. awaiting TTE TIA, likely 2/2 hypertensive crisis ABCD2 score: 5 points -imaging, MRI and labs reviewed -continue telemetry -continue DAPT for 21 days per point trial -continue atorvastatin 80 mg q.d. -neurology consulted -a1c 5.2, TSH 4.73, free T4 ordered -TTE results pending -neuro checks Hypertensive crisis, improved -continue lisinopril 10 mg, labetalol 20mg IV push p.r.n. to decrease MAP by 25% in first hour -monitor blood pressure, with halfway goal BP less than 140 -monitor for any signs of worsening headache Leukopenia -monitor for any signs of fever, shortness of breath, follow-up as outpatient with PCP/hematology/oncology Hyperlipidemia -labs with LDL of 181 -we will initiate atorvastatin 80 mg q.d., we will likely require initiation of ezetimibe 10 mg -counseling given on importance of Mediterranean diet and doing at least 150 minutes of moderate intensity exercise per week, patient resonated understanding. FEN: NI, replete as needed, cardiac GI PPx: NI DVT PPx: SCDs Code Status: Full Code Disposition: All questions and concerns with the patient were answered to satisfaction. All pertinent clinical documents, images and labs were reviewed. DISCLAIMER: This document was created using voice recognition software. Any mistakes in the prescription are unintentional. An attempt was made to focus for accuracy, but to expedite availability, some errors may persist. Please contact with any need for correction or further clarification Total time managing care of this patient today: 35 minutes. Quality Stroke Does the patient have a stroke diagnosis?: No Reason for No Anti-thrombotic by Day Two: N/A - Med Ordered VTE Prior VTE?: No VTE Risk Level:: Medical - moderate - high VTE Device Contraindication: N/A - Device Ordered VTE Drug Contraindication: Treatment Not Indicated
[2025-01-05 14:31] LABS: Free T4 (Free Thyroxine) 1.09 ng/dL (0.71-1.85)
[2025-01-05 15:35] VITALS: BP 108/73; PULSE 60; RESP 20; TEMP 36.7; O2SAT 95
[2025-01-05 19:32] VITALS: BP 103/61; PULSE 66; RESP 16; TEMP 36.2; O2SAT 97
[2025-01-06] VITALS: BP 90/54; PULSE 60; RESP 17; TEMP 36.3; O2SAT 95
[2025-01-06 01:18] VITALS: BP 103/58
[2025-01-06 04:00] VITALS: BP 110/57; PULSE 54; RESP 18; TEMP 36.3; O2SAT 98
[2025-01-06 08:00] VITALS: BP 125/79; PULSE 67; RESP 20; TEMP 36.2; O2SAT 98
[2025-01-06] MEDS: Aspirin Enteric Coated 81 MG TABLET.DR PO (08:32)
[2025-01-06] MEDS: 0.9 % Sodium Chloride Flush 3 ML SYRINGE IVFLUSH (08:34)
--- NOTE | 2025-01-06 11:43 | P.DS_ITS ---
DS: Providers Provider Date of Service: 01/06/25 Date of admission: 01/04/25 10:02 Date of discharge: 01/06/25 Primary care physician: Ida Franklin PA-C Consults: 01/04/25 09:52 Consult to Neurology Routine Consulting Provider: [facility] Reason for consultation: TIA Has provider been notified: No Attending physician on discharge: Azar Meade Discharging clinician: Azar Meade DS: Diagnosis Discharge Diagnosis (1) Brain TIA: Status: Acute (2) Hyperlipidemia: Status: Acute DS: Summary Hospital Course Hospital Course: 64-year-old female who presented to the ED on 01/04 with left-sided weakness and dysarthria, found to have elevated blood pressure, elevated LDL. With CT head and neck with no hemorrhage, with calcified plaques in both ICA without high- grade stenosis. MRI negative for stroke, with chronic ischemic changes. Patient at this time with no deficits, to continue DAPT for 21 days, atorvastatin 80 mg, follow up with Neurology as an outpatient. Patient has appointment with PCP for next . We will continue with blood pressure medications, patient advised on keeping a log of blood pressure and taken to PCP. Per patient's leukopenia, suggested on following up with her PCP. TIA, likely 2/2 hypertensive crisis ABCD2 score: 5 points -imaging, MRI and labs reviewed -continue DAPT for 21 days -continue atorvastatin 80 mg q.d. -follow up w/ PCP and Neurology -TTE results pending Hypertensive crisis, resolved -continue lisinopril 10 mg, -monitor blood pressure and keep BP logs -monitor for any signs of worsening headache Leukopenia -monitor for any signs of fever, shortness of breath, follow-up as outpatient with PCP/hematology/oncology Hyperlipidemia -labs with LDL of 181 -continue atorvastatin 80 mg q.d., will likely require initiation of ezetimibe 10 mg -counseling given on importance of Mediterranean diet and doing at least 150 minutes of moderate intensity exercise per week, patient resonated understanding. All new and continued medications were discussed in depth with the patient, and new prescriptions were given directly to patient and/or verification of the prescriptions were sent to patient's preferred pharmacy directly. All side effects were discussed. Follow-up instructions were given. Patient voiced understanding. Patient was given the opportunity ask questions and express concerns, all of which were answered to their satisfaction. Patient was instructed to follow-up with her PCP within 3 to 10 days of discharge and head to the nearest emergency room or call 911 if symptoms worsen or new symptoms develop. This is a summary of the patient's stay; for more complete details please see chart. More than 35 minutes was spent with patient regarding workup, diagnosis and follow-up. Time Attestation Discharge Coordination Time (in mins): 35 minutes Quality: Safe Use of Opioids Does Pt have an Active Cancer Diagnosis on the Problem List?: No Quality: Stroke Does the patient have a stroke diagnosis?: No Physical Exam Exam: Exam: General: AxOx3, No acute distress Head: AT/NC ENT: Moist mucous membranes Neck: supple CVS; RRR, S1 S2 normal Lungs: Clear bilateral breath sounds, no wheezes or crackles Abd: Soft non tender, non distended Ext: No edema and no calf tenderness MSK: moving all 4 limbs Skin: No cyanosis or edema Psych: Cooperative with exam Neurology: no focal deficit Vital Signs: Vital Signs: Last Vital Signs Temp 97.2 F 01/06/25 08:00 Pulse 67 01/06/25 08:00 Resp 20 01/06/25 08:00 BP 125/79 01/06/25 08:00 Pulse Ox 98 01/06/25 08:00 O2 Del Method Room Air 01/06/25 08:00 BMI result Body Mass Index 27.0 DS: Data Data Completed and Pending Labs on day of discharge: Laboratory Results - last 24 hr 01/05/25 13:35 Free T4 1.09 Discharge Plan Discharge Anticipated Discharge Date/Time: 01/06/25 11:30 Patient Disposition: Home, Self-Care Discharge Diagnosis: TIA, hypertension, hyperlipidemia Referrals: Ida Franklin PA-C [Primary Care Provider, Internal Medicine] Pete Nath MD [Physician, Neurology] - 2 Weeks Problems: Brain TIA Discharge Medications: New atorvastatin 80 mg Tablet 80 mg PO DAILY Qty: 30 1RF clopidogrel 75 mg Tablet 75 mg PO DAILY Qty: 20 0RF aspirin 81 mg Tablet,Delayed Release (Dr/Ec) 81 mg PO DAILY 30 Days Qty: 30 0RF lisinopril 10 mg Tablet 10 mg PO DAILY 30 Days Qty: 30 1RF Protocol: Hold for SBP< HOLD for SBP < : 90 Discharge Orders: Discharge Order (Routine); Ordered 01/06/25 Ordered By: Azar Meade Activity on Discharge: As tolerated Stand Alone Forms: Patient Portal Discharge page Print Language: Upper Sorbian Care Plan Goals: continue aspirin and plavix, atorvastatin, follow up with primary care provider and neurology, Mediterranean diet Health Concerns: Transient ischemic attack, hypertension Plan of Treatment: dual antiplatelet treatment (Aspirin and plavix) Atorvastatin 80mg blood pressure control with lisinopril. record blood pressure at home follow up with PCP and neurology Assessment: 64-year-old female who presented to the ED on 01/04 with left-sided weakness and dysarthria, found to have elevated blood pressure, elevated LDL. With CT head and neck with no hemorrhage, with calcified plaques in both ICA without high- grade stenosis. MRI negative for stroke, with chronic ischemic changes. Patient at this time with no deficits, to continue DAPT for 21 days, atorvastatin 80 mg, follow up with Neurology as an outpatient. Patient has appointment with PCP for next . We will continue with blood pressure medications, patient advised on keeping a log of blood pressure and taken to PCP. Per patient's leukopenia, suggested on following up with her PCP. Patient Instructions: Transient Ischemic Attack (DC), Chronic Hypertension (DC), Stroke Prevention (DC), Mediterranean Diet (DC)
--- NOTE | 2025-01-06 11:43 | MHC.CM.PN ---
Patient has been medically cleared for dc to home today, self care.
[2025-01-06 12:00] VITALS: BP 131/91; PULSE 70; RESP 20; TEMP 36.2; O2SAT 97
== END 2025-01-06 14:44 | disposition home or self-care (01) | DRG 69 ==
LOC: HO.ED 09:21 → HO.EDOVER 10:02 → HO.IMC 16:22
PROVIDERS: Admitting Provider Student in an Organized Health Care Education/Training Program; Emergency Provider Emergency Medicine; Visit Provider Student in an Organized Health Care Education/Training Program
DX: G45.9 Transient cerebral ischemic attack, unspecified (principal); I16.9 Hypertensive crisis, unspecified; E78.00 Pure hypercholesterolemia, unspecified
CPT/HCPCS: 36415; 70450; 70496; 70498; 70551; 80048; 80061; 82947; 83036; 83735; 84439; 84443; 84484; 85025; 85610; 85730; 93005; 93306; 97116; 97161; 97165; 99285; Q9967

== ENCOUNTER → 2025-01-04 08:09 | Outpatient (BNV) | payer OTHER, SELFPAY | PROVIDERS: Emergency Provider Emergency Medicine; Visit Provider Radiology Diagnostic Radiology | DX: I65.23 Occlusion and stenosis of bilateral carotid arteries (principal); R53.1 Weakness | CPT/HCPCS: 70450; 70496; 70498; 70551 ==

== ENCOUNTER → 2025-01-04 08:09 | Outpatient (BNV) | payer OTHER, SELFPAY | PROVIDERS: Admitting Provider Student in an Organized Health Care Education/Training Program; Emergency Provider Emergency Medicine; Visit Provider Internal Medicine Cardiovascular Disease | DX: R94.31 Abnormal electrocardiogram [ECG] [EKG] (principal); I63.9 Cerebral infarction, unspecified | CPT/HCPCS: 93010 ==

== ENCOUNTER → 2025-01-04 10:02 | Outpatient (BNV) | payer OTHER, SELFPAY | PROVIDERS: Admitting Provider Student in an Organized Health Care Education/Training Program; Emergency Provider Emergency Medicine; Visit Provider Psychiatry & Neurology Neurology | DX: G45.9 Transient cerebral ischemic attack, unspecified (principal); I16.9 Hypertensive crisis, unspecified | CPT/HCPCS: 99222 ==

== ENCOUNTER → 2025-01-04 10:02 | Outpatient (BNV) | payer OTHER, SELFPAY | PROVIDERS: Admitting Provider Student in an Organized Health Care Education/Training Program; Emergency Provider Emergency Medicine; Visit Provider Student in an Organized Health Care Education/Training Program | DX: G45.9 Transient cerebral ischemic attack, unspecified (principal); E78.5 Hyperlipidemia, unspecified | CPT/HCPCS: 99223; 99232; 99239 ==

== ENCOUNTER 2025-01-23 08:28 | Outpatient (AMB) | payer OTHER, SELFPAY ==
--- NOTE | 2025-01-23 09:03 | MHC.PC.OV ---
Vital Signs 01/23/25 09:04 Height 5 ft 1 in Weight 143 lb BMI 27.0 BP 142/110 H Blood Pressure Location Lt brachial Position Sitting Pulse 65 Pulse Source Pulse Oximeter Temp 97.3 F Temp Source Temporal Artery Scan Pulse Oximetry (%) 95 Oxygen Delivery Method Room Air Intake Visit Reasons: establish care Allergies No Known Allergies Allergy (Verified 01/23/25 09:06) Medication List - Last Reconciled 01/23/25 by Magaly Inman MD aspirin 81 mg PO DAILY 30 days atorvastatin 80 mg PO DAILY cholecalciferol (vitamin D3) 250 mcg PO DAILY clopidogrel 75 mg PO DAILY lisinopril 10 mg See Protocol PO DAILY 30 days Tobacco use date assessed: 01/23/25 Dental Screening Dental Screen Date: 01/23/25 Did you have a dental visit in the last 12 months?: No Did you have a dental problem in the last 6 months where you did not have access to dental care?: No Was dental information given to patient?: Patient has dentist HPI HPI Comments History of Present Illness Details Patient is a 64-year-old female who is presenting today to establish care and follow up hospitalization. Patient was recently admitted to [facility] [place] from January 04 to January 06 for TIA likely secondary to hypertensive crisis, with symptoms of left-sided weakness and dysarthria found to have elevated LDL of 181, with negative CT scan of head and neck and negative MRI for stroke with chronic ischemic changes. Symptoms resolved and was without any neurological deficits. Started on lisinopril 10 mg, DAPT continue for 21 days, atorvastatin 80 mg. Echocardiogram from 01/04/2025 showed EF of 65-70%, grade 1 diastolic dysfunction, no evidence of regional wall motion abnormalities, patent foramina ovale detected. Patient reports history of hypertension prior to that hospitalization, was previously on medication, however she weaned herself off the medication over a 4 month period without medical supervision, and has not seen a doctor in awhile. Following recent hospitalization, she has been monitoring her blood pressure at home with readings ranging in the 100s to 120 systolic over 70s to 80s diastolic. Patient reports feeling more tired than usual and concerned about blood pressure running lower. However denies any dizziness. Outpatient labs from January 10 showed a total cholesterol of 233 mg/dL and LDL of 127 mg/dL, improved from hospital levels of 286 mg/dL and 181 mg/dL, respectively. The same labs showed a mildly elevated potassium of 5.4 mEq/L and a low vitamin D level of 23.4 ng/mL. Hemoglobin A1c was normal at 5.4%. Past surgical history is significant for back surgery with hardware removal in 2010, ankle surgery with hardware removal around the same time, a section, and a cervical spine fusion. The patient lives with her sister and mother. Denies smoking or illicit drug use. The patient drinks alcohol socially, about one to two drinks per week. Patient also has been trying to eat healthier and exercise after her recent hospitalization. [facility] Medical History Hypertensive crisis Social History Household Members: Family Housing: House Patient Tobacco Use Status: Never used Tobacco e-Cigarette/Vaping Use: Never Used service: No Current occupational status: employed Current occupation: facilities management Cognitive needs: No Hearing needs: No Vision needs: No Questionnaire PHQ-9 Over the last 2 weeks, how often have you been bothered by any of the following problems? 1. Little interest or pleasure in doing things: not at all 2. Feeling down, depressed, or hopeless: not at all 3. Trouble falling or staying asleep, or sleeping too much: not at all 4. Feeling tired or having little energy: more than half the days 5. Poor appetite or overeating: not at all 6. Feeling bad about yourself - or that you are a failure or have let yourself or your family down: not at all 7. Trouble concentrating on things, such as reading the newspaper or watching television: not at all 8. Moving or speaking so slowly that other people could have noticed. Or the opposite - being so fidgety or restless that you have been moving around a lot more than usual: not at all 9. Thoughts that you would be better off or of hurting yourself in some way: not at all Total score: 2 Source: Developed by Drs. Cachorro Sidhu, Valarie Marquez, Charles Walls and colleagues, with an educational logan from [employer]. Thrive Questionnaire Date Thrive assessed: 01/05/25 I am a: Patient What is your living situation today?: I have a steady place to live Within the past 12 months, did the food you bought not last and you didn't have the money to get more?: Never true Within the past 12 months, did you worry whether your food would run out before you got money to buy more?: Never true Do you have trouble paying for medicines?: No Do you have trouble getting transportation to medical appointments?: No Do you have trouble paying your heating and electricity bill?: No Do you have trouble taking care of your child, family member or friend?: No Do you have trouble with day-to-day activities such as bathing, preparing meals, shopping, managing finances, etc.?: No Are you currently unemployed and looking for a job?: No Are you interested in more education?: No Please select the resources that you would like help with: None Currently or been in a relationship where the following occur: No concerns reported THRIVE Score: 0 AUDIT C Alcohol Use Questionnaire (AUDIT-C) 1. How often do you have a drink containing alcohol?: 2-4 times a month 2. How many drinks containing alcohol do you have on a typical day when you are drinking?: 1 or 2 3. How often do you have six or more drinks on one occasion?: Never Total Score: 2 STEFANY-7 AMB Questionnaire STEFANY-7 Date STEFANY - 7 assessed: 01/23/25 Feeling nervous, anxious, or on edge: 0 = Not at all Not being able to stop or control worryin = Not at all Worrying too much about different things: 0 = Not at all Trouble relaxin = Not at all Being so restless that it is hard to sit still: 0 = Not at all Becoming easily annoyed or irritable: 0 = Not at all Feeling afraid as if something awful might happen: 0 = Not at all Total STEFANY-7 score (0-4 normal; 5-9 mild; 10-14 moderate; 15-21 severe): 0 Source: Developed by Drs. Cachorro Sidhu, Valarie Marquez, Charles Walls and colleagues, with an educational logan from [employer]. Physical exam (Primary Care) Vital Signs: Last Vital Signs Temp 97.3 F 01/23/25 09:04 Pulse 65 01/23/25 09:04 Pulse Ox 95 01/23/25 09:04 Oxygen Delivery Method Room Air 01/23/25 09:04 General: Well-appearing, alert, oriented ?3, in no acute distress. Cardiovascular: RRR, S1-S2 appreciated, no murmurs, rubs or gallops. Respiratory: Lungs clear to auscultation bilaterally, no wheezes, rales or rhonchi. Abdomen: Soft, nontender, nondistended. Normoactive bowel sounds. No lower extremity edema. Neurologic: Alert and oriented X3, cranial nerves II?XII grossly intact, sensation and strength intact in bilateral lower and upper extremities. BMI result Body Mass Index 27.0 Tobacco/Smoking Status: Tobacco use Status Tobacco use date assessed 01/23/25 01/23/25 09:11 Patient Tobacco Use Status Never used Tobacco 01/23/25 09:11 e-Cigarette/Vaping Use Never Used 01/23/25 09:11 PHQ-9: PHQ-9 Score PHQ-9: Total score 2 01/23/25 09:11 Thrive Assessment: Date of Thrive Assessment Date Thrive assessed 01/05/25 01/23/25 09:11 Currently or been in a relationship where the following occur: No concerns reported Coding Level of Care Code New Pt Level 4 (43213) Diagnoses Establishing care with new doctor, encounter for Z76.89 Brain TIA G45.9 Hyperlipidemia, unspecified hyperlipidemia type E78.5 Hyperlipidemia type: unspecified Hypertension, unspecified type I10 Hypertension type: unspecified Patent foramen ovale Q21.12 Vitamin D deficiency E55.9 Elevated TSH R79.89 Hyperkalemia E87.5 Assessment & Plan Assessment & Plan (1) Establishing care with new doctor, encounter for: Code(s): Z76.89 - Persons encountering health services in other specified circumstances Plan: Patient is a 64-year-old female with recent hospitalization for TIA presenting today to establish care. (2) Brain TIA: Code(s): G45.9 - Transient cerebral ischemic attack, unspecified Category: Medical Plan: Patient was admitted to [facility] [place] from January 04 to January 06 for TIA, with symptoms of left-sided weakness and dysarthria found to have elevated blood pressure, LDL of 181, with negative CT scan of head and neck and negative MRI for stroke with chronic ischemic changes. Symptoms resolved and was without any neurological deficits upon discharge. Started on lisinopril 10 mg, aspirin and Plavix to continue for 21 days, and atorvastatin 80 mg. Echocardiogram from 01/04/2025 showed EF of 65-70%, grade 1 diastolic dysfunction, no evidence of regional wall motion abnormalities, patent foramina ovale detected. -continue on Plavix until completion of the 21 days course -continue on aspirin 81 mg indefinitely -continue on atorvastatin 80 mg daily -follow up with Neurology as scheduled. (3) Hyperlipidemia: Code(s): E78.5 - Hyperlipidemia, unspecified Category: Medical Qualifiers: Hyperlipidemia type: unspecified Qualified Code(s): E78.5 - Hyperlipidemia, unspecified Plan: Lipid panel from 01/04/2025 showed cholesterol 286 and LDL of 181. She was started on atorvastatin 80 mg during recent hospitalization. More recent blood work that patient brought with her from January 10 showed improvement in total cholesterol of 233 and LDL of 127. A1c 5.4% Given patient's history of TIA her goal LDL is < 70. Continue on atorvastatin 80 mg daily and repeat lipid panel next visit. (4) Hypertension: Code(s): I10 - Essential (primary) hypertension Category: Medical Qualifiers: Hypertension type: unspecified Qualified Code(s): I10 - Essential (primary) hypertension Plan: Patient reports history of hypertension, was previously on medication that she weaned herself off of it over 4 months. Has not follow up after that, anterior recent hospitalization for TIA, during which she was started on lisinopril 10 mg daily. Patient brings her home blood pressure log today that shows home blood pressure readings ranging from 100s to 120s over 70s to 80s before taking medication, with more recent readings in the low 100s over 70s. Patient reports lethargic and fatigue over the past week, but no dizziness or syncope. Patient concerned about low blood pressure. Given that her readings are prior to taking her medication, plan is to decrease lisinopril from 10 mg to 5 mg daily. Continue to measure blood pressure twice daily for 2 weeks and return to clinic for nurse visit for blood pressure check and bring log with her to review. (5) Patent foramen ovale: Code(s): Q21.12 - Patent foramen ovale Category: Medical Plan: During a recent hospitalization for TIA, upon further evaluation, patient was found to have a patent foramina ovale on echocardiogram from 01/04/2025. Patient referred to Cardiology for further evaluation and management. (6) Vitamin D deficiency: Code(s): E55.9 - Vitamin D deficiency, unspecified Category: Medical Plan: Patient bring blood work papers that indicate low vitamin-D levels of 23, currently on vitamin-D supplements daily. (7) Elevated TSH: Code(s): R79.89 - Other specified abnormal findings of blood chemistry Plan: TSH from 01/05/2025 was 4.7, and from 01/10/2025 was 4.9. Will repeat levels in 2 weeks. (8) Hyperkalemia: Code(s): E87.5 - Hyperkalemia Plan: Patient brings blood work results that show elevated potassium of 5.4. Will repeat BMP Orders: Orders Basic Metabolic Panel 2 Weeks E87.5 - Hyperkalemia TSH reflex Free T4 Today R79.89 - Other specified abnormal findings of blood chemistry Triiodothyronine T3 Free 2 Weeks R79.89 - Other specified abnormal findings of blood chemistry Free T4 (Free Thyroxine) 2 Weeks R79.89 - Other specified abnormal findings of blood chemistry Referrals Cardiology Referral Q21.12 - Patent foramen ovale Medications: New aspirin 81 mg PO DAILY 90 tabs 1RF TIA lisinopril 5 mg PO DAILY 30 tabs 0RF hypertension Discontinued lisinopril Discontinued Reason: Ancillary Entered New Order 10 mg See Protocol PO DAILY 30 days 30 tabs 1RF aspirin Discontinued Reason: Ancillary Entered New Order 81 mg PO DAILY 30 days 30 tabs 0RF
[2025-01-23 09:04] VITALS: BP 142/110; PULSE 65; TEMP 36.3; O2SAT 95; BMI 27.0
== END 2025-01-23 09:57 | disposition home or self-care (01) ==
LOC: HO.HMCH 08:29
PROVIDERS: PCP Student in an Organized Health Care Education/Training Program; Visit Provider Student in an Organized Health Care Education/Training Program
DX: Z76.89 Persons encountering health services in other specified circumstances (principal); G45.9 Transient cerebral ischemic attack, unspecified; E78.5 Hyperlipidemia, unspecified; I10 Essential (primary) hypertension; Q21.12 Patent foramen ovale; E55.9 Vitamin D deficiency, unspecified; R79.89 Other specified abnormal findings of blood chemistry; E87.5 Hyperkalemia

== ENCOUNTER 2025-01-24 11:27 | Emergency (ER) | payer OTHER, SELFPAY ==
[2025-01-24] VITALS (7 sets, daily range): BP systolic 110–163; BP diastolic 70–82; PULSE 57–69; RESP 15–20; TEMP 36.6–36.8; O2SAT 97–98; BMI 26.4
--- NOTE | 2025-01-24 11:32 | ED_ITS ---
HPI - General Adult General Chief complaint: Weakness Stated complaint: High BP, dizziness Time Seen by Provider: 01/24/25 11:36 Source: patient, RN notes reviewed and old records reviewed Mode of arrival: ambulatory Limitations: no limitations History of Present Illness ED Provider: Alda Garay PA-C HPI narrative: 64 yo female with history of TIA earlier this month discharged on DAPT and high dose statin along w/ lisinopril who presents to the ER for evaluation of feeling listless with poor energy for the last several days. She reports upon discharge from the hospital 01/06 she has not felt quite back to baseline. She works from home and has had lack of energy since discharge, she used to run/sprint. She reports today when she bent over to pick something up she felt an odd sensation in her left knee that was similar to when she had her TIA. At that time she also had left UE weakness, facial numbness and tingling, none now. She felt lightheaded today after bending down and sat down with improvement. She denies any associated chest pain, vision changes, hearing changes, nausea, vomiting, abdominal pain. She denies any fever or chills. No muscle aches or body aches. She reports poor concentration and lack of energy which going on for days to weeks. She saw her PCP yesterday who decided to lower her lisinopril from 10 mg to 5 mg. This prescription is pending. She took 10 mg this morning. Her blood pressure has been running in the low 100s over 70s and she monitors it 3 times per day. MD complaint: Lack of energy, dizziness Onset (ago): week(s) Location: left and lower extremity Radiation: non-radiation Severity: moderate Pain Consistency: intermittent Relieving factors: rest Exacerbating factors: movement Treatments prior to arrival: none Related Data Home Medications ?Medication ?Instructions ?Recorded ?Confirmed cholecalciferol (vitamin D3) 250 250 mcg PO DAILY 01/0101/23/25 mcg (10,000 unit) capsule Previous Rx's ?Medication ?Instructions ?Recorded atorvastatin 80 mg tablet 80 mg PO DAILY #30 tabs 09/23 clopidogrel 75 mg tablet 75 mg PO DAILY #20 tabs 09/23 aspirin 81 mg tablet 81 mg PO DAILY TIA #90 tabs 01/23/25 lisinopril 5 mg tablet 5 mg PO DAILY hypertension # 30 tabs 01/23/25 Allergies Allergy/AdvReac Type Severity Reaction Status Date / Time No Known Allergies Allergy Verified 01/24/25 11:36 Review of Systems 2 Review of Systems: Yes all other systems are reviewed and are negative [facility] Past Medical History Medical History Hypertensive crisis Social History Social History Household Members: Family Housing: House Patient Tobacco Use Status: Never used Tobacco e-Cigarette/Vaping Use: Never Used Advance Directives: No Advance Directives Information Provided: Yes service: No Current occupational status: employed Current occupation: facilities management Cognitive needs: No Hearing needs: No Vision needs: No Physical Exam ED Exam Exam: Appearance: Alert. Oriented X3. No acute distress. Head: normocephalic, atraumatic. Eyes: Pupils equal, round and reactive to light. EOMI. ENT: Pharynx normal. No tonsillar swelling or exudate. Neck: Normal inspection. Neck supple. CVS: Normal heart rate and rhythm. Pulses normal. Respiratory: No respiratory distress. Breath sounds normal. Abdomen: Soft and nontender. +BS x4 Skin: Skin warm and dry. Normal skin color. Normal skin turgor. No rashes. Few healing scabs on her right upper back, no excoriations, no surrounding erythema, no warmth, no vesicles. Extremities: No lower extremity edema. No joint swelling. Neuro/psych: Oriented X 3. No motor deficit. No sensory deficit. CN II-XII intact. Normal speech and cognition. Vital Signs: Vital Signs - 24 hr 01/24/25 11:33 01/24/25 12:12 01/24/25 12:19 Temperature 97.8 F 98.3 F Pulse Rate 60 59 58 Respiratory Rate 18 15 Blood Pressure 163/81 H 133/82 126/75 Pulse Oximetry 98 98 Oxygen Delivery Method Room Air Room Air 01/24/25 12:21 01/24/25 12:24 01/24/25 14:12 Temperature 98.0 F Pulse Rate 65 69 57 Respiratory Rate 20 Blood Pressure 129/74 110/70 116/76 Pulse Oximetry 97 Oxygen Delivery Method Room Air 01/24/25 14:43 Temperature 98.0 F Pulse Rate 57 Respiratory Rate 20 Blood Pressure 116/76 Pulse Oximetry 97 Oxygen Delivery Method Room Air BMI result Body Mass Index 26.4 Course Course Course Narrative: This is a rapid medical exam performed by Lane Kessler NP: Additional HPI, ROS, PE not included below will be deferred to primary provider. Patient is a 64y/o F with pmhx TIA on 01/04/25, HTN, HLD, PFO presenting to the ED with complaint of feeling listless and lightheaded. Just had appt with new PCP yesterday. Reports difficult to describe visual changes. NIHSS 0 in triage. Denies fevers. Plan: EKG, labs, viral serology, will defer imaging to primary provider Medications Administered Discontinued Medications Generic Name Dose Route Start Last Admin Trade Name Freq PRN Reason Stop Dose Admin Lactated Ringer's 1,000 mls @ 999 mls/hr 01/24/25 12:45 01/24/25 14:45 Lr IV 01/24/25 13:45 Infused .Q1H1M NATALIE Infusion Medical Decision Making Medical Decision Making [facility] Narrative: 64-year-old female with recent TIA presenting to the ER for evaluation of lack of energy for the last several weeks along with episode of dizziness when bending over today. She was on no medications prior to her admission earlier this month. Her old records were reviewed, her blood pressure was 190 on admission. She was discharged on 10 mg of lisinopril and dual antiplatelet therapy. Her blood pressures have been normotensive at home, her home record was reviewed. Her symptoms may be due to her body acclimating to normotension, agree with her PCP and decreasing the lisinopril to 5 mg daily. Orthostatic vital signs here were technically negative but she did have a 19 point drop in her systolic blood pressure upon standing. 1 L of IV fluids were given. patient somewhat improved. energy still below her baseline. BP stable 120s. workup is unremarkable. comfortable with discharge home w/ plan to decrease lisinopril and f/u with her PCP. has BP check in 2 weeks with the nurse. return precautions were discussed. pt agrees with plan Differential Diagnosis Differential Diagnoses: The differential diagnosis associated with the presentation includes Orthostatic hypotension, vertigo, dehydration, hypothyroidism, metabolic derangement, JULIETTE, TIA Admission/Observation Consideration of admission/observation: Escalation of care including admission/observation considered Lab Data [facility] Lab Attestation statement: I reviewed the patient's lab results. Leukopenia which is stable and chronic. She has some very mild transaminitis with no bilirubin or alk-phos abnormalities. Her troponin is negative. TSH is normal 01/24/25 11:52 01/24/25 11:52 Labs: Lab Results 01/24/25 01/24/25 Range/Units 11:52 11:55 WBC 4.5 L (4.8-10.8) X10*3/uL RBC 5.15 (4.20-5.50) X10*6/uL Hgb 15.4 (12.0-16.0) g/dl Hct 46.2 (37.0-47.0) % MCV 89.7 (80.0-98.0) fL MCH 29.9 (27.0-33.0) pg MCHC 33.3 (31.0-35.0) g/dl RDW 12.7 (11.0-16.0) % Plt Count 253 (160-400) X10*3/uL MPV 9.4 (9.4-12.3) fL Immature Gran % (Auto) 0.4 (0.0-0.4) % Neut % (Auto) 65.5 (45-73) % Lymph % (Auto) 20.7 (20-40) % Twiggs % (Auto) 10.3 (2-11) % Eos % (Auto) 2.2 (0-4) % Baso % (Auto) 0.9 (0-2) % Lymph # (Auto) 0.9 L (1.2-4.9) X10*3/uL [place]gs # (Auto) 0.5 (0.1-1.2) X10*3/uL Eos # (Auto) 0.1 (0.0-0.4) X10*3/uL Baso # (Auto) 0.0 (0.0-0.2) X10*3/uL Abs Immat Gran (auto) 0.02 (0.00-0.03) X10*3/uL Absolute Neuts (auto) 2.9 (2.0-8.3) x10*3/uL Absolute Nucleated RBC 0.000 (0.0-0.012) X10*3/uL Nucleated RBC % (auto) 0.0 (0.0-0.2) /100WBC PT 11.7 (11.2-13.5) SEC INR 1.0 (0.9-1.1) Sodium 140 (135-145) mmol/L Potassium 3.6 (3.3-5.1) mmol/L Chloride 106 (96-108) mmol/L Carbon Dioxide 26 (22-29) mmol/L Anion Gap 12 (12-20) BUN 17 H (9-16) mg/dL Creatinine 0.83 (0.5-1.4) mg/dL Estim Creat Clear Calc 59.2 Estimated GFR > 60 Random Glucose 88 (60-115) mg/dL Calcium 9.8 D (8.4-10.2) mg/dL Magnesium 1.9 (1.6-2.6) mg/dL Total Bilirubin 0.5 (0.0-1.0) mg/dL AST 32 H (5-31) U/L ALT 37 H (0-31) U/L Alkaline Phosphatase 111 (39-117) U/L Troponin I High Sens < 2.7 (<3.5-17.0) ng/L Total Protein 7.8 (6.5-8.0) g/dL Albumin 4.8 (3.5-5.0) g/dL TSH 1.77 (0.32-4.0) uIU/mL Urine Color Yellow Urine Appearance Clear Urine pH 5.5 (5.0-9.0) Ur Specific [place] <= 1.005 (1.005-1.025) Urine Protein Negative (Neg-Trace) mg/dL Urine Glucose (UA) Negative (Negative) mg/dL Urine Ketones Negative (Negative) mg/dL Urine Blood Negative (Negative) Urine Nitrite Negative (Negative) Ur Leukocyte Esterase Negative (Negative) Influenza Type A (PCR) NEGATIVE (Negative) Influenza Type B (PCR) NEGATIVE (Negative) RSV RNA Qual (PCR) NEGATIVE (Negative) SARS-CoV-2 RNA (RT-PCR) NEGATIVE (Negative) Independent Interpretation I performed an independent interpretation of an: EKG Interpretation: sinus bradycardia HR 59, t-wave inversions in V1-V3 which are old. no ST segment elevations or depressions, normla QTc and LA interval. no changes from prior Independent Historian Clinical information obtained from an independent historian. History obtained from or confirmed by: Other (sister who she lives with) External Record Review External record reviewed: Inpatient record, Prior outpatient labs and Prior outpatient radiology Tests considered The following testing was considered but not selected: CT head, exam nonfocal. no symptoms of TIA/CVA Chronic Conditions Patient?s care impacted by: Hypertension and Other (TIA) Discharge Plan Discharge Clinical Impression: Fatigue Qualifiers: Fatigue type: unspecified Qualified Code(s): R53.83 - Other fatigue Patient Disposition: Home, Self-Care Instructions: Fatigue (ED) Additional Instructions: Your lab workup today was unremarkable. Your blood pressures did have a 19 point drop when going from sitting to standing. Alterations in your blood pressure was body positions may account for some of your symptoms of lightheadedness and fatigue. Your blood pressures being in the normal range may be contributing to your low energy levels Recommend decreasing your lisinopril to 5 mg daily. Increase your daily activity as tolerated, including exercise and cold plunging - this should help with energy level Follow up with your PCP If you develop new or worsening symptoms call 911 or come back to the ER for further evaluation. Prescriptions: No Action atorvastatin 80 mg Tablet 80 mg PO DAILY Qty: 30 1RF clopidogrel 75 mg Tablet 75 mg PO DAILY Qty: 20 0RF cholecalciferol (vitamin D3) 250 mcg (10,000 unit) capsule 250 mcg PO DAILY lisinopril 5 mg tablet 5 mg PO DAILY Qty: 30 0RF aspirin 81 mg tablet 81 mg PO DAILY Qty: 90 1RF Referrals: Magaly Inman MD [Primary Care Provider, Internal Medicine] Interventions: ED Discharge Assessment Last Done: 01/24/25 14:43 Discharge Date/Time: 01/24/25 14:43 Print Language: Luxembourgish
--- NOTE | 2025-01-24 11:36 | ECG_ITS ---
Test Reason : LIGHTHEADED Blood Pressure : */* mmHG Vent. Rate : 59 BPM Atrial Rate : 59 BPM P-R Int : 164 ms QRS Dur : 84 ms QT Int : 396 ms P-R-T Axes : 44 -40 -1 degrees QTcB Int : 392 ms Sinus bradycardia Left axis deviation Nonspecific ST and T wave abnormality Abnormal ECG When compared with ECG of 04-Jan-2025 08:27, QT has shortened Referred By: Janeth Kessler Electronically Signed By: Marlo Vasquez
[2025-01-24 11:59] LABS: MANUAL DIFF FLAG NO
[2025-01-24 12:03] LABS: Appearance Urine Clear; Glucose Urine UA Negative (Negative); PH 5.5 (5.0-9.0); Specific Gravity - Urine <= 1.005 (1.005-1.025)
--- NOTE | 2025-01-24 12:09 | PC.NURSE ---
Labs drawn and sent, results pending. 20g IV access to left AC. DAVE Garay to bedside evaluating the patient. No acute distress, call [place] within reach. Care ongoing by this RN.
[2025-01-24 12:24] LABS: Hematocrit 46.2 % (37.0-47.0); Hemoglobin 15.4 g/dl (12.0-16.0); Imm Gran Abs Auto 0.02 X10*3/uL (0.00-0.03); Imm Gran Pct Auto 0.4 % (0.0-0.4); Lymphocytes Absolute Auto 0.9 X10*3/uL (1.2-4.9); Mean Corpuscular HGB Conc 33.3 g/dl (31.0-35.0); Mean Corpuscular Hemoglobin 29.9 pg (27.0-33.0); Mean Corpuscular Volume 89.7 fL (80.0-98.0); NRBC Abs Auto 0.000 X10*3/uL (0.0-0.012); NRBC Pct Auto 0.0 /100WBC (0.0-0.2); Platelet Count 253 X10*3/uL (160-400); Red Blood Count 5.15 X10*6/uL (4.20-5.50); White Blood Count 4.5 X10*3/uL (4.8-10.8)
[2025-01-24 12:25] LABS: Alanine Aminotransferase 37 U/L (0-31); Albumin Level 4.8 g/dL (3.5-5.0); Alkaline Phosphatase 111 U/L (39-117); Anion Gap 12 (12-20); Aspartate Amino Transferase 32 U/L (5-31); Blood Urea Nitrogen 17 mg/dL (9-16); Calcium 9.8 mg/dL (8.4-10.2); Carbon Dioxide 26 mmol/L (22-29); Chloride 106 mmol/L (96-108); Creatinine Clr Calc Pharmacy 59.2; Estimated Glomerular Filt Rate > 60; INTERNATIONAL NORM RATIO 1.0 (0.9-1.1); Magnesium 1.9 mg/dL (1.6-2.6); Potassium 3.6 mmol/L (3.3-5.1); Prothrombin Time 11.7 SEC (11.2-13.5); Sodium 140 mmol/L (135-145); Total Protein 7.8 g/dL (6.5-8.0)
[2025-01-24 12:29] LABS: Troponin-I High Sensitivity < 2.7 ng/L (<3.5-17.0)
[2025-01-24 12:41] LABS: Resp Syncy Virus RNA Qual PCR NEGATIVE (Negative); SARS COV2 PCR INHOUSE NEGATIVE (Negative)
[2025-01-24] MEDS: Lactated Ringers 1,000 ML 999 ML IV (13:03)
== END 2025-01-24 14:43 | disposition home or self-care (01) ==
PROVIDERS: Physician Assistant; Registered Nurse Emergency; Emergency Provider Emergency Medicine; PCP Student in an Organized Health Care Education/Training Program
DX: R53.83 Other fatigue (principal); R00.1 Bradycardia, unspecified; R42 Dizziness and giddiness; Z86.73 Personal history of transient ischemic attack (TIA), and cerebral infarction without residual deficits; Z03.818 Encounter for observation for suspected exposure to other biological agents ruled out
CPT/HCPCS: 80053; 81003; 83735; 84443; 84484; 85025; 85610; 87637; 93005; 96360; 96361; 99284; J7120

== ENCOUNTER → 2025-01-24 11:36 | Outpatient (BNV) | payer OTHER, SELFPAY | PROVIDERS: Emergency Provider Emergency Medicine; PCP Student in an Organized Health Care Education/Training Program; Visit Provider Internal Medicine Cardiovascular Disease | DX: R00.1 Bradycardia, unspecified (principal) | CPT/HCPCS: 93010 ==

== ENCOUNTER 2025-02-16 14:30 | Outpatient (AMB) | payer OTHER, SELFPAY ==
--- NOTE | 2025-02-16 15:00 | A.OFFVIS_ITS ---
Intake Visit Reasons: TIA (neurology) Allergies No Known Allergies Allergy (Verified 01/24/25 11:36) HPI Comments Details: The patient is a 64-year-old, left-handed female presenting for a neurologic consultation following a recent hospitalization for a transient ischemic attack (TIA). On January 04, 2025, she was at [facility] with acute onset left-sided weakness and difficulty speaking, with symptoms lasting approximately 30 minutes. Her initial blood pressure upon presentation was 212/104 mmHg. Her workup included a CT and CTA of the head which were both normal. An MRI of the brain demonstrated chronic microvascular ischemic disease, and it was noted she may have had a smaller, similar event in the past. The patient has a history of hypertension for approximately 6 to 8 years. She reports nonadherence to her blood pressure medication, stating she tapered off it on her own after her previous doctor's care ended and did not establish care with a new physician for some time. She was also previously on cholesterol medication but stopped taking it when her prescription ran out. She is currently taking a daily aspirin. She works a sedentary job at a computer. She denies cocaine use and is advised to limit alcohol. [facility] Medical History Hypertensive crisis Social History Household Members: Family Housing: House Patient Tobacco Use Status: Never used Tobacco e-Cigarette/Vaping Use: Never Used service: No Current occupational status: employed Current occupation: facilities management Cognitive needs: No Hearing needs: No Vision needs: No Review of Systems Narrative Constitutional:?No fever, chills, fatigue, weight loss, or night sweats. HEENT:?No headache, vision changes, hearing loss, nasal congestion, sore throat. Neurological:?No dizziness, syncope, seizures, numbness, tingling, weakness, tremors, memory loss. Psychiatric:?No anxiety, depression, mood swings, sleep disturbance, or hallucinations. Endocrine:?No heat/cold intolerance, polydipsia, polyuria, or hair/skin changes. Hematologic/Lymphatic:?No easy bruising, bleeding, or lymphadenopathy. Integumentary (Skin):?No rash, lesions, itching, or color changes. ? Physical Exam Neuro Other: Mental Status: Alert and oriented to person, place, and time. Normal attention. Normal spontaneous speech, fluency, and comprehension. No obvious issues with mood and memory. Affect is appropriate. Cranial Nerves: CN II: Visual krause full to confrontation, visual acuity intact. CN III, IV, : Pupils equal, round, reactive to light and accommodation. Extraocular movements are normal. CN V: Facial sensation is normal. CN VII: Facial movements symmetrical. CN VIII: Hearing intact to bedside conversation is normal. CN IX, X: Palate elevates symmetrically. CN XI: Shoulder shrug and head turn symmetrical. CN XII: Tongue midline without atrophy or fasciculations. Motor: Bulk and tone normal in all extremities. No significant muscle weakness in arms and legs. No drift. Reflexes: Deep tendon reflexes 2+ and symmetric. Plantar response down-going bilaterally. Coordination: [id number] and [id number] testing normal. No dysmetria. Gait and Station: No obvious gait abnormality. No ataxia or instability. Extrapyramidal: Full facial expressions and blinking. No rigidity. Movements are appropriate with no tremor or abnormality. Speech: Normal; no dysarthria or tremor. Results Reviewed Results Reviewed: CT HEAD WITHOUT CONTRAST (STROKE PROTOCOL) CLINICAL INFORMATION: Stroke protocol. Left-sided weakness COMPARISON: None available. TECHNIQUE: Contiguous axial imaging was performed from the skull base to vertex without intravenous administration of contrast. This CT examination was performed using dose optimization techniques as appropriate, variously including the following: *Automated exposure control *Adjustment of mA and/or kV according to patient size (this includes techniques or standardized protocols for targeted exams where dose is matched to indication/reason for exam; i.e. extremities or head) *Use of iterative reconstruction technique DLP: 633 mGy-cm FINDINGS: No acute intracranial hemorrhage, mass effect, midline shift, hydrocephalus or herniation. Anderson-white matter differentiation is normal. No increased density in the MCA. Posterior cranial fossa contents demonstrated no acute hemorrhage or mass effect. Craniocervical junction is intact with normal position of the cerebellar tonsils. Sellar/suprasellar region demonstrated no gross masses. Probable old traumatic deformities in the nasal bones. No air-fluid levels in the paranasal sinuses. Tympanic cavities and mastoid cells are aerated. CT/CT head for STROKE IMPRESSION: No acute intracranial hemorrhage or acute brain abnormality by CT. CT HEAD WITHOUT CONTRAST (STROKE PROTOCOL) CLINICAL INFORMATION: Stroke protocol. Left-sided weakness COMPARISON: None available. TECHNIQUE: Contiguous axial imaging was performed from the skull base to vertex without intravenous administration of contrast. This CT examination was performed using dose optimization techniques as appropriate, variously including the following: *Automated exposure control *Adjustment of mA and/or kV according to patient size (this includes techniques or standardized protocols for targeted exams where dose is matched to indication/reason for exam; i.e. extremities or head) *Use of iterative reconstruction technique DLP: 633 mGy-cm FINDINGS: No acute intracranial hemorrhage, mass effect, midline shift, hydrocephalus or herniation. Anderson-white matter differentiation is normal. No increased density in the MCA. Posterior cranial fossa contents demonstrated no acute hemorrhage or mass effect. Craniocervical junction is intact with normal position of the cerebellar tonsils. Sellar/suprasellar region demonstrated no gross masses. Probable old traumatic deformities in the nasal bones. No air-fluid levels in the paranasal sinuses. Tympanic cavities and mastoid cells are aerated. CT/CT angio head neck STROKE IMPRESSION: No acute intracranial hemorrhage or acute brain abnormality by CT. EXAMINATION: CTA NECK WITH CONTRAST (STROKE) CTA BRAIN WITH CONTRAST (STROKE) CLINICAL INFORMATION: Left-sided weakness. Concerning for acute stroke. COMPARISON: None available. TECHNIQUE: CTA of the head and neck was performed in the axial plane from the mediastinum to the skull vertex using 70 mL Omnipaque 350 intravenous contrast. Additional reformatted multiplanar images including maximum intensity projection MIP images are generated on the CT workstation. This CT examination was performed using dose optimization techniques as appropriate, variously including the following: *Automated exposure control *Adjustment of mA and/or kV according to patient size (this includes techniques or standardized protocols for targeted exams where dose is matched to indication/reason for exam; i.e. extremities or head) *Use of iterative reconstruction technique DLP: 666 mGy-cm FINDINGS: The degree of stenosis determined by criteria similar to NASCET. Chest CTA: No aneurysm or dissection in the included aortic arch. The main right branches are patent. Neck CTA: Right CCA: Normal patency. No focal stenosis. No intimal flap. Right ICA: Mixed plaques. Normal patency. No focal stenosis. No intimal flap. Left CCA: Normal patency. No focal stenosis. No intimal flap. Left ICA: Mixed plaque. Normal patency. No focal stenosis. No intimal flap. Tortuosity. V1/V2 segments: Normal patency. No focal stenosis. No intimal flap. Left vertebral artery slightly dominant. Both orientating from the subclavian arteries. Brain CTA: Anterior cerebral circulation: ICAs: Normal patency. No focal stenosis. No abrupt cut off. No gross calcified plaque. No vascular irregularity at the ICA terminus. MCA's: Normal patency. No focal stenosis. No abrupt cut off. Bifurcation/trifurcation demonstrated no gross irregularity. ACAs: Normal patency. No focal stenosis. No abrupt cut off. Ophthalmic arteries are patent without gross irregularity. Anterior communicating artery is not identified. Right posterior communicating artery is patent. Posterior cerebral circulation: V3/V4 segments: Normal patency. No intimal flap. Basilar artery is patent without focal stenosis or intimal flap. Left PICA is normal. Right PICA has a common trunk with the right anterior inferior cerebellar artery. Left anterior inferior cerebellar artery is patent. Superior cerebellar arteries are patent. retread operator: Normal patency. No focal stenosis. No abrupt cut off. Ancillary findings: No main cerebral venous sinus thrombosis. Multilevel cervical spondylosis resulting in kyphotic deformity apex at C3-4. Nonspecific, bilateral prominent cervical lymph nodes. Thyroid gland is not enlarged. Pulmonary mosaic pattern. Status post anterior cervical fusion and intervertebral body disc spacer placement C4 C6. IMPRESSION: No main cerebral artery occlusion or embolus. Calcified plaques in both ICA without high degree stenosis. No dissection. [place] [id number] Magnetic Resonance Report Signed Patient: Ariadna Lubin MR#: [id number] : 1960 Acct:[id number] Age/Sex: 64 / F ADM Date: 01/04/25 Loc: [facility] 445-[address]: Azar Meade MD Ordering Physician: Azar Barraza MD Date of Service: 01/04/25 Procedure(s): MR head/brain wo con Accession Number(s): [id number] cc: Azar Barraza MD; Ida Franklin PA-C~ Reason for Exam: TIA CLINICAL HISTORY: TIA MR Brain without gadolinium Comparison: None provided Findings: No restricted diffusion. Faint tiny focus of T2 shine through in the right internal capsule. No intra-axial mass or hemorrhage. Scattered T2/FLAIR hyperintensities in the deep white matter, nonspecific, however may represent sequela of chronic microvascular ischemic disease. No midline shift. No hydrocephalus. Vascular flow voids are intact. Orbital contents are unremarkable. Minimal fluid in the bilateral mastoid air cells. No focal bone lesion. IMPRESSION: No acute intracranial abnormality. Test Reason : LIGHTHEADED Blood Pressure : */* mmHG Vent. Rate : 59 BPM Atrial Rate : 59 BPM P-R Int : 164 ms QRS Dur : 84 ms QT Int : 396 ms P-R-T Axes : 44 -40 -1 degrees QTcB Int : 392 ms Sinus bradycardia Left axis deviation Nonspecific ST and T wave abnormality Abnormal ECG When compared with ECG of 04-Jan-2025 08:27, QT has shortened Assessment & Plan Assessment & Plan (1) Cerebral microvascular disease: Comment: [place] brain [place] [facility] [place]: WNL CTA brain and neck at [facility] [place] in Dec [place]24: [place] MRI brain WO at [facility] [place] 20[place]: Mild MVD and a faint area of R carney radiata hyperintensity Code(s): I67.89 - Other cerebrovascular disease Category: Medical Plan Impression: a: Mild HTN related cerebral microvascular ischemic disease b: Mild right carney radiata area small ischemic lesion in Dec Rec: a: BP control b: Aspirin 81mg daily c: Statin therapy I explained to the patient that her recent symptoms were due to a transient ischemic attack (TIA) caused by uncontrolled high blood pressure. I discussed that her MRI shows evidence of chronic small vessel ischemic changes, which is damage to microscopic brain blood vessels, and I clarified that this damage is not reversible. I emphasized that the goal of treatment is to prevent further damage and future strokes. I stressed the critical importance of lifelong adherence to her blood pressure medication, explaining her hypertension is genetic and permanent. I also recommended restarting a statin for cholesterol management and stroke prevention, in addition to continuing daily baby aspirin. I instructed her to present to an emergency room immediately if any new stroke- like symptoms occur. I advised her to follow up regularly with her primary care doctor for medication management and to maintain a socially and physically active lifestyle. My note will be forwarded to her PCP, and she will follow up with me as needed. Coding Level of Care Code Est Pt Level 5 (71706) Diagnoses Cerebral microvascular disease I67.89
== END 2025-02-16 15:19 | disposition home or self-care (01) ==
PROVIDERS: PCP Student in an Organized Health Care Education/Training Program; Visit Provider Psychiatry & Neurology Neurology
DX: I67.89 Other cerebrovascular disease (principal)
CPT/HCPCS: 99215